=== PATIENT | female | born 1975 | race Caucasian/White ===

== ENCOUNTER 2023-09-22 00:08 | Inpatient (IN) ==
--- OUTSIDE RECORDS SUMMARY | 2023-09-22 00:11 | External Medical Summary | Summary of Care ---
Author Name Unknown Organization [facility] Address [address] [place] [address] Phone [phone] Care Team Providers Care Glass Bulb Silverer Name Role Phone Anny Aguilera DO Primary Care Provider [phone] Reason for Visit * Reason Onset Date Comments Blood Pressure Check 09/19/2023 Encounter Details Date Type Department Care Team (Late st Contact Info) Description 09/19/2023 9:20 AM EST Nurse Only Ancillary [facility] 132 [facility] [place] [address] [facility] 132 [facility] [place] [address] Blood Pressure Check Allergies Active Allergy Reactions Criticality Noted Date Comments Amoxicillin Other (Please comment) Medium 11/23/2010 Yeast infection Food (See Comments) 08/16/2017 Chantell itchy all over Chives gives hives all over body documented as of this encounter (statuses as of 09/19/2023) Medications Medication Sig Dispensed Refills Start Date End Date Status Multiple Vitamins-Minerals (MULTI FOR HER) CAPS Take by mouth. 0 Active Elderberry 575 MG/5ML Oral Syrup Take by mouth . 0 Ac tive Albuterol Sulfate HFA 108 (90 Base) MCG/ACT Inhalation Aerosol SolutionIndication s:Wheezing Inhale 2 Puffs by mouth every 4 hours as needed for Wheezing. 8.5 g 3 09/18/2023 Active Fluticasone Propionate 50 MCG/ACT Nasal Suspension (Flonase)Indicatio ns:ETD (Eustachian tube dysfunction), right Administer 2 Sprays into each nostril in the morning. 16 g 3 09/18/2023 Active predniSONE 20 MG Oral Tablet (Deltasone)Indicat ions:Bronchitis, complicated Take 2 Tablets by mouth in the morning for 5 days. 10 Tablet 0 09/18/2023 09/24/2023 Active Doxycycline Hyclate 100 MG Oral CapsuleIndications :Bronchitis, complicated Take 1 Capsule by mouth in the morning and 1 Capsule before bedtime. Do all this for 7 days. 14 Capsule 0 09/18/2023 09/26/2023 Active documented as of this encounter (statuses as of 09/19/2023) Active Problems Problem Noted Date Diagnosed Date HTN, goal below 130/80 08/24/2019 Dermatophytosis of nail 01/06/2009 Family history of diabetes mellitus 01/06/2009 Family history of ischemic heart disease 009 documented as of this encounter (statuses as of 09/19/2023) Resolved Problems Problem Noted Date Diagnosed Date Resolved Date HTN, goal below 140/90 08/16/201708/24 Acute bronchitis, complicated 07/05/2010 05/07/2013 documented as of this encounter (statuses as of 09/19/2023) Immunizations Name Administration Dates Next Due COVID-19 mRNA, LNP-s, No Pre serve, 2-Dose Series (Moderna) 12/24/2020,11/26/2020 TDAP (age 10 and older)(Boostrix) 06/02/2019 TDAP (age 11 and older)(Adacel) 01/06/2009 documented as of this encounter Social History Tobacco Use Types Packs/Day Years Used Date Smoking Tobacco: Never Smokeless Tobacco: Never Alcohol Use Standard Drinks/Week Comments No 0 (1 standard drink = 0.6 oz pur e alcohol) PHQ-2 Answer Date Recorded PHQ Adult Total Score 0 11/07/2021 Hunger Vital Sign Answer Date Recorded Within the past 12 months, y ou worried that your food would run out before you got the money to buy more. Never true 10/27/19 21 Within the past 12 months, t he food you bought just didn't last and you didn't have money to get more. Never true 10/26/2020 Sex and Gender Information Value Date Recorded Sex Assigned at Female 01/22/2023 4:00 PM EDT Gender Identity Female 01/22/2023 4:00 PM EDT Sexual Orientation Straight 01/22/2023 4: 00 PM EDT Job Start Date Occupation Industry Not on file Not on file Not on file documented as of this encounter Last Filed Vital Signs Vital Sign Reading Time Taken Comments Blood Pressure 154/112 09/19/2023 9:23 AM EST Pulse 110 09/19/2023 9:23 AM EST Temperature - - Respiratory Rate - - Oxygen Saturation - - Inhaled Oxygen Concentration - - Weight - - Height - - Body Mass Index - - documented in this encounter Progress Notes * Leena Reid LPN - 09/19/2023 9:11 AM EST Soni Jose Jama presented for blood pressure check per provider orders. The blood pressure was obtained using the left arm in the sitting position using a adult cuff. The results were charted in Vital Signs. BP Readings from Last 3 Encounters: 09/18/23 (!) 222/112 04/12/23 126/70 01/23/23 120/68 This morning it was 171/103 at home with BP cuff. Pt was previously on BP meds (Lisinopril), was taken off of it in November 2021. Today's NV Vitals: 0916 BP-- 158/118 P- 105 0922 BP- 154/112 P- 110 Today in clinic pt is not symptomatic at all-- only congestion. Pending quad swab. Denies SOB or CP. Patient denies headache, pressure in head, dizziness, lightheadedness, chest discomfort, focal neurological symptoms, change in vision, nose bleeds. But was seen yesterday for sinus congestion Sx. Ptwas advised from PCP to take old lisinopril if she got home and her systolic was over 200 but it was around 180. Did patient take medications today? No, not Rx'd and maintenance meds. Last dose of Sudafed yesterday afternoon. Flonase OTC used last night. 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 Preferred pharmacy-- [facility] Patient was instructed to follow-up with CAMILA or Linsey Osman after today's results are reviewed. documented in this encounter Plan of Treatment Upcoming Encounters Date Type Department Care Team (Late st Contact Info) Description 09/24/2023 9:00 AM EST Nurse Only Ancillary [facility] [place] 132 [facility] [place] [address] Nurse Mannie [facility] 132 [facility] [place] [address] Scheduled Orders Name Type Priority Associated Diagnoses Orde r Schedule BLOOD PRESSURE Procedures Routine HTN, goal below 130/80 Ordered: 09/19/2023 Health Maintenance Due Date Last Done Comments Hepatitis B (1 of 3 - 3-dose series) 1976 HPV/Co-Test 2006 Colonoscopy 2021 Fecal Occult Blood Test 2021 Sigmoidoscopy 2021 Depression Screening 11/07/2022 11/07/2021 GFR 11/07/2022 11/07/2021, 10/11, 08/24/2019, Additional history exists COVID-19 Vaccine ( season) 2023 12/24/2020, 11/26/2020 Influenza Vaccine (FLU shot) (#1) 2023 Cervical Cancer Screening 11/05/2023 Pap Smear 11/05/2023 11/04/2020 Mammogram 07/19/2024 07/19/2023, 06/13, 06/27/2021, Additional history exists Albumin/Creatinine Ratio 11/07/2024 11/07/2021 Diabetes Screening 11/07/2024 11/07/2021, 0 11/04/2020, 08/24/2019, Additional history exists Cologuard 12/14/2024 12/14/2021, 11/11, 12/05/2021 Colorectal Cancer Screening 12/14/2024 Lipid Panel 11/07/2026 11/07/2021, 03/13, 01/06/2009 DTaP,Tdap,and Td Vaccines (3 - Td or Tdap) 06/02/2029 06/02/2019, 01/06/2009 GARDASIL-HPV IMMUNIZATION SERIES Aged Out No longer eligible based on patient's age to complete this topic MENINGOCOCCAL (MENACTRA/MENVEO) Aged Out No longer eligible based on patient's age to complete this topic Pneumococcal Vaccine: Pediatrics (0 to 5 Years) and At-Risk Patients (6 to 64 Years) Aged Out No longer eligible based on patient's age to complete this topic documented as of this encounter Medical Devices Not on filedocumented as of this encounter Visit Diagnoses Diagnosis HTN, goal below 130/80- Primary Unspecified essential hypertension documented in this encounter Care Teams Glass Bulb Silverer Relationship Specialty Start Date End Date Anny Aguilera DO [address] [place] [address] PCP - General Family Medicine 04/06/17 documented as of this encounter
--- OUTSIDE RECORDS SUMMARY | 2023-09-22 00:11 | External Medical Summary | Summary of Care ---
Author Name Unknown Organization [facility] Address [address] [place] [address] Phone [phone] Care Team Providers Care Centrifugal Casting Machine Tender Name Role Phone Anny Aguilera DO Primary Care Provider [phone] Reason for Visit * Reason Comments Physical-Exam Yearly exam, head co ngestion ear pressure, cough, chest tightness, requesting inhaler, covid tests today and yesterday were neg Encounter Details Date Type Department Care Team (Late st Contact Info) Description 09/18/2023 6:40 PM EST Office Visit Family Practice [facility] [address] [place] [address] Anny Aguilera, DO [address] [place] [address] Well adult exam*; Wheezing; ETD (Eustachian tube dysfunction), right; HTN, goal below 130/80; Bronchitis, complicated; Reactive arthritis of multiple sites (HCC) Allergies Active Allergy Reactions Criticality Noted Date Comments Amoxicillin Other (Please comment) Medium 11/23/2010 Yeast infection Food (See Comments) 08/16/2017 Chantell itchy all over Chives gives hives all over body documented as of this encounter (statuses as of 09/21/2023) Medications Medication Sig Dispensed Refills Start Date End Date Status Multiple Vitamins-Minerals (MULTI FOR HER) CAPS Take by mouth. 0 Active Elderberry 575 MG/5ML Oral Syrup Take by mouth . 0 Ac tive Albuterol Sulfate HFA 108 (90 Base) MCG/ACT Inhalation Aerosol SolutionIndicatio ns:Wheezing Inhale 2 Puffs by mouth every 4 hours as needed for Wheezing. 8.5 g 3 09/18/2023 Active Fluticasone Propionate 50 MCG/ACT Nasal Suspension (Flonase)Indicati ons:ETD (Eustachian tube dysfunction), right Administer 2 Sprays into each nostril in the morning. 16 g 3 09/18/2023 Active predniSONE 20 MG Oral Tablet (Deltasone)Indica tions:Bronchitis, complicated Take 2 Tablets by mouth in the morning for 5 days. 10 Tablet 0 09/18/2023 4 Active Doxycycline Hyclate 100 MG Oral CapsuleIndication s:Bronchitis, complicated Take 1 Capsule by mouth in the morning and 1 Capsule before bedtime. Do all this for 7 days. 14 Capsule 0 09/18/2023 4 Active fluticasone (FLONASE) 50 MCG/ACT nasal sprayIndications: ETD (Eustachian tube dysfunction), right Administer 2 Sprays into each nostril daily. 1 Bottle 11 02/11/2019 4 Discontinue d(Refill) Albuterol Sulfate (ALBUTEROL HFA) 108 (90 BASE) MCG/ACT inhaler Inhale 2 Puffs by mouth every 4 hours as needed for Wheezing. 1 Inhaler 1 07/03/2019 4 Discontinue d(Refill) Nabumetone 750 MG Oral Tablet Take 1 Tablet by mouth in the morning and 1 Tablet before bedtime. 42 Tablet 0 04/12/2023 4 Discontinue d(Medicatio n List Clean Up) documented as of this encounter (statuses as of 09/21/2023) Active Problems Problem Noted Date Diagnosed Date Reactive arthritis of multiple sites 09/21/2023 HTN, goal below 130/80 08/24/2019 Dermatophytosis of nail 01/06/2009 Family history of diabetes mellitus 01/06/2009 Family history of ischemic heart disease 009 documented as of this encounter (statuses as of 09/21/2023) Resolved Problems Problem Noted Date Diagnosed Date Resolved Date HTN, goal below 140/90 08/16/201708/24 Acute bronchitis, complicated 07/05/2010 05/07/2013 documented as of this encounter (statuses as of 09/21/2023) Immunizations Name Administration Dates Next Due COVID-19 [...] Sign Reading Time Taken Comments Blood Pressure 222/112 09/18/2023 6:52 PM EST Pulse 112 09/18/2023 6:52 PM EST Temperature 37.4 C (99.4 F) 09/18/2023 6:42 PM ES T Respiratory Rate - - Oxygen Saturation - - Inhaled Oxygen Concentration - - Weight 90.3 kg (199 lb) 09/18/2023 6:42 PM EST Height 161.9 cm (5' 3.75") 09/18/2023 6:42 PM ES T Body Mass Index 34.43 09/18/2023 6:42 PM EST documented in this encounter Progress Notes * Anny Aguilera, DO - 09/18/2023 6:56 PM EST Subjective: Soni Jama is a 48 year old female. Chief Complaint Patient presents with Physical-Exam Yearly exam, head congestion ear pressure, cough, chest tightness, requesting inhaler, covid tests today and yesterday were neg HPI: Pt presents for physical today. Developed a scratchy throat 4 days ago, then sore throat and body aches. + cough, hurts with a deep breath. + sinus pain/pressure. Has been taking sudafed otc. No SOB. Covid test at home negative. was sick last week. BP elevated today, has increased stress, SENG in the hospital. No DILL, no vision changes. PHM: Patient Active Problem List Diagnosis Code Dermatophytosis of nail B35.1 Family history of diabetes mellitus Z83.3 Family history of ischemic heart disease Z82.49 HTN, goal below 130/80 I10 Current Outpatient Medications Medication Sig Dispense Refill Multiple Vitamins-Minerals (MULTI FOR HER) CAPS Take by mouth. fluticasone (FLONASE) 50 MCG/ACT nasal spray Administer 2 Sprays into each nostril daily. 1 Bottle 11 Albuterol Sulfate (ALBUTEROL HFA) 108 (90 BASE) MCG/ACT inhaler Inhale 2 Puffs by mouth every 4 hours as needed for Wheezing. 1 Inhaler 1 Elderberry 575 MG/5ML Oral Syrup Take by mouth . No current facility-administered medications for this visit. Past Medical History: Diagnosis Date Benign neoplasm of skin benign moles Calculus of kidney 1998 complicatied - required surgery for blockage Dermatophytosis of nail toenails HTN, goal below 140/90 08/16/2017 INFORMATION Has received MMR boosters x 2 for low rubella titers in Past Surgical History: Procedure Laterality Date DENTAL SURGERY PROCEDURE NEC KNEE ARTHROSCOPY/SURGERY x3 - L knee - lateral plica revision, cartilidge removed x 2 REMOVAL OF LARGE STONE FROM KIDNEY Review of patient's allergies indicates: Allergen Reactions Amoxicillin Other (Please comment) Yeast infection Food (See Comments) Chantell itchy all over Chives gives hives all over body Objective: BP (!) 222/112 (BP Site: Right Arm, BP Position: Sitting, BP Cuff Size: Large) | Pulse 112 | Temp 37.4 C (99.4 F) (Tympanic) | Ht 1.619 m (5' 3.75") | Wt 90.3 kg (199 lb) | BMI 34.43 kg/m | BSA2.02 m Review of Systems: As per HPI, all other ROS neg. Physical Exam: General: alert, healthy, no distress, well nourished and well developed Head: Normocephalic, No masses, lesions, tenderness or abnormalities Ears: External ears normal, Canals clear, TM's Normal Nose: clear rhinorrhea, mucosal edema, mucosal erythema, sinus tenderness Oropharynx: no exudate, lips, buccal mucosa, and tongue normal, mucous membranes are moist, mild erythema and post nasal drip Neck: supple, small benign anterior cervical nodes bilaterally Heart: regular rate & rhythm, no murmurs and no gallops Lungs: + sig dec air mov't b/l, slight exp wheeze Abdomen: abdomen soft, non-tender, normal bowel sounds, and no masses or organomegaly Extremities: less than 2 second capillary refill, no joint deformities, effusion, or inflammation Well adult exam (Primary) all appropriate HM items addressed Including genitourinary (pap, mammo, psa), colon cancer screening and immunizations as indicated by patient sex, age and history Wheezing - Albuterol Sulfate HFA 108 (90 Base) MCG/ACT Inhalation Aerosol Solution; Inhale 2 Puffs by mouth every 4 hours as needed for Wheezing. ETD (Eustachian tube dysfunction), right - Fluticasone Propionate 50 MCG/ACT Nasal Suspension (Flonase); Administer 2 Sprays into each nostril in the morning. HTN, goal below 130/80 - BASIC METABOLIC PANEL; Future; Expected date: 09/18/2023 - LIPID PANEL WITH DIRECT LDL IF TG IS HIGH; Future; Expected date: 09/18/2023 Stop sudafed/other decongestants/cough medications Monitor BP at home, repeat NV tomorrow If remains elevated will restart lisinopril Bronchitis, complicated - predniSONE 20 MG Oral Tablet (Deltasone); Take 2 Tablets by mouth in the morning for 5 days. - Doxycycline Hyclate 100 MG Oral Capsule; Take 1 Capsule by mouth in the morning and 1 Capsule before bedtime. Do all this for 7 days. - INFLUENZA A/B RSV SARS-COV2,PCR; Future; Expected date: 09/18/2023 - INFLUENZA A/B RSV SARS-COV2,PCR Reactive arthritis of multiple sites (HCC) Hx of, sx resolved Follow up: as needed. Anny Aguilera DO documented in this encounter Plan of Treatment Upcoming Encounters Date Type Department Care Team (Late st Contact Info) Description 09/24/2023 9:00 AM EST Nurse Only Ancillary [facility] 132 [facility] [place] [address] Nurse Mannie De La Rosa 132 [facility] [place] [address] Scheduled Orders Name Type Priority Associated Diagnoses Orde r Schedule BASIC METABOLIC PANEL Lab Routine HTN, goal below 130/80 Expected: 09/18/2023 (Approximate), Expires: 09/17/2024 LIPID PANEL WITH DIRECT LDL IF TG IS HIGH Lab Routine HTN, goal below 130/80 Expected: 09/18/2023, Expires: 09/18/2024 Health Maintenance Due Date Last Done Comments [...] Not on filedocumented as of this encounter Procedures Procedure Name Priority Date/Time Associated Diagnosis Comments INFLUENZA A/B RSV SARS-COV2,PCR Routine 09/18/2023 7:28 PM EST Bronchitis, complicated documented in this encounter Results * INFLUENZA A/B RSV SARS-COV2,PCR (09/18/2023 7:28 PM EST) SARS-CoV-2 (COVID-19) Result Negative Negative 09/19/2023 11:07 AM EST [facility] Comment: No SARS-CoV2 Coronavirus RNA detected by PCR (amplified probe). This express test was developed and its performance characteristics determined by [employer]. It has not been cleared or approved by the U.S. Food and Drug Administration (FDA). FDA does not require this test to go thru premarket FDA review. This test is used for clinical purposes. It should not be regarded as investigational or for research. This laboratory is certified under the Clinical Laboratory Improvement Amendments (CLIA) as qualified to perform high complexity clinical laboratory testing. This test is a nucleic acid amplification test (NAAT), a reverse transcriptase polymerase chain reaction (RT-PCR) test, or a Centers for Disease Control- acceptable equivalent. The test is performed in a high complexity Clinical Laboratory Improvement Amendments-(CLIA) certified laboratory. The test is acceptable for SARS-CoV-2 diagnosis, surveillance, and travel within the [place] and to most countries. Please check with local testing authorities about requirements before travel. The validation of bronchial specimens, tracheal aspirates, and sputum for this assay was developed and performance characteristics determined by [employer]. The validation of alternate specimen types has not been cleared or approved by the U.S. Food and Drug Administration (FDA). It has been determined that such clearance is not necessary. Influenza A PCR Result Negative Negative 09/19/2023 11:07 AM EST [facility] Comment:No Influenza A RNA d etected by PCR (amplified probe) Influenza B PCR Result Negative Negative 09/19/2023 11:07 AM EST [facility] Comment:No Influenza B RNA d etected by PCR (amplified probe) RSV PCR Result Negative Negative 09/19/2023 11:07 AM EST [facility] Comment:No Respiratory Syncy tial Virus RNA detected by PCR (amplified probe) Upper Respiratory Mid-turbinate nasal swab / Unknown Non-blood Collection / Unknown 09/18/2023 7:28 PM EST 09/18/2023 7:28 PM EST Anny Aguilera DO LAB MICRO - GENERAL ORDERABLES [facility] [place] [address] documented in this encounter Visit Diagnoses Diagnosis Well adult exam- Primary Routine general medical examination at a health care facility Wheezing ETD (Eustachian tube dysfunction), right HTN, goal below 130/80 Unspecified essential hypertension Bronchitis, complicated Bronchitis, not specified as acute or chronic 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
--- OUTSIDE RECORDS SUMMARY | 2023-09-22 00:11 | External Medical Summary | Summary of Care ---
Author Name Unknown Organization [facility] [address] [facility] [address] Phone [phone] Care Team Providers Care Mining Detail Draftsperson Name Role Phone Anny Aguilera DO Primary Care Provider Encounter Details Date Type Department Care Team (Late st Contact Info) Description 09/20/2023 Orders Only PATIENT [facility] DO NOT DELETE THIS DEPT USED BY [place] [address] Allergies Active Allergy Reactions Criticality Noted Date Comments Amoxicillin Other (Please comment) Medium 11/23/2010 Yeast infection Food (See Comments) 08/16/2017 Chantell itchy all over Chives gives hives all over body documented as of this encounter (statuses as of 09/20/2023) Medications Medication Sig Dispensed Refills Start Date [...] as of this encounter (statuses as of 09/20/2023) Active Problems Problem Noted Date Diagnosed Date HTN, goal below 130/80 08/24/2019 Dermatophytosis of nail 01/06/2009 Family history of diabetes mellitus 01/06/2009 Family history of ischemic heart disease 009 documented as of this encounter (statuses as of 09/20/2023) Resolved Problems Problem Noted Date Diagnosed Date Resolved Date HTN, goal below 140/90 08/16/201708/24 Acute bronchitis, complicated 07/05/2010 05/07/2013 documented as of this encounter (statuses as of 09/20/2023) Immunizations Name Administration Dates Next Due COVID-19 [...] on file documented as of this encounter Plan of Treatment Upcoming Encounters Date Type Department Care Team (Late st Contact Info) Description 09/24/2023 9:00 AM EST [facility] [address] [place] [address] De La Rosa, Nurse [facility] 132 [facility] [place] [address] Health Maintenance Due Date Last Done Comments [...] 08/24/2019, Additional history exists Cologuard 12/14/2024 12/14/2021, 042 01/2022, 12/05/2021 Colorectal Cancer Screening 12/14/2024 Lipid Panel [...] Not on filedocumented as of this encounter Care Teams Mining Detail Draftsperson Relationship Specialty Start Date End Date Anny Aguilera DO [address] [place] [address] PCP - General Family Medicine 04/06/17 documented as of this encounter
--- OUTSIDE RECORDS SUMMARY | 2023-09-22 00:11 | External Medical Summary ---
Author Name Unknown Address Unknown Organization [facility] - [address] [place] [address] Laboratory Report Ordering Provider Test Date Status YANET PLUNKETT 09/18/2023 19:28:32 Final Observation Date Value Abnormality Reference (Units ) Status SARS Coronavirus 2 09/18/2023 19:28:32 Negative N egative Final No SARS-CoV2 Coronavirus RNA detected by PCR (amplified probe).
This express test was developed and its performance characteristics determined by [employer]. It has not been cleared or approved [...] (RT-PCR) test, or a Centers for Disease Control-acceptable equivalent. The test is performed in a high complexity Clinical Laboratory Improvement Amendments-(CLIA) certified laboratory. The test is acceptable for SARS-CoV-2 diagnosis, surveillance, and travel within the [place] and to most countries. Please check with local testing authorities about requirements before travel.

The validation of bronchial specimens, tracheal aspirates, and sputum for this assay was developed and performance characteristics determined by [employer] [facility]. The validation of alternate specimen types has not been cleared or approved by the U.S. Food and Drug Administration (FDA). It has been determined that such clearance is not necessary. Influenza virus A RNA [Prese nce] in Specimen by BENNETT with probe detection 09/18/2023 19:28:32 Negative Negative Final No Influenza A RNA detected by PCR (amplified probe) Influenza virus B RNA [Prese nce] in Specimen by BENNETT with probe detection 09/18/2023 19:28:32 Negative Negative Final No Influenza B RNA detected by PCR (amplified probe) Respiratory syncytial virus RNA [Identifier] in Specimen by BENNETT with probe detection 09/18/2023 19:28:32 Negative Negative Final No Respiratory Syncytial Vir us RNA detected by PCR (amplified probe) Performing Location [facility] - [address] [place] [address]
--- OUTSIDE RECORDS SUMMARY | 2023-09-22 00:11 | External Medical Summary | Summary of Care ---
Author Name Unknown Organization [facility] Address [address] [place] [address] Phone [phone] Care Team Providers Care Managed Care Director Name Role Phone Anny Aguilera DO Primary Care Provider Encounter Details Date Type Department Care Team (Late st Contact Info) Description 07/22/2023 Orders Only Family Practice [facility] [address] [place] [id number] Anny Aguilera DO [address] [place] [id number] Allergies Active Allergy Reactions Criticality Noted Date Comments Amoxicillin Other (Please comment) Medium 11/23/2010 Yeast infection Food (See Comments) 08/16/2017 Chantell itchy all over Chives gives hives all over body documented as of this encounter (statuses as of 07/22/2023) Medications Medication Sig Dispensed Refills Start Date End Date Status Multiple Vitamins-Minerals (MULTI FOR HER) CAPS Take by mouth. 0 Active fluticasone (FLONASE) 50 MCG/ACT nasal sprayIndications:ET D (Eustachian tube dysfunction), right Administer 2 Sprays into each nostril daily. 1 Bottle 11 02/11/2019 Active Albuterol Sulfate (ALBUTEROL HFA) 108 (90 BASE) MCG/ACT inhaler Inhale 2 Puffs by mouth every 4 hours as needed for Wheezing. 1 Inhaler 1 07/03/2019 Active Elderberry 575 MG/5ML Oral Syrup Take by mouth . 0 Ac tive Nabumetone 750 MG Oral Tablet Take 1 Tablet by mouth in the morning and 1 Tablet before bedtime. 42 Tablet 0 04/12/2023 Active documented as of this encounter (statuses as of 07/22/2023) Active Problems Problem Noted Date Diagnosed Date HTN, goal below 130/80 08/24/2019 Dermatophytosis of nail 01/06/2009 Family history of diabetes mellitus 01/06/2009 Family history of ischemic heart disease 009 documented as of this encounter (statuses as of 07/22/2023) Resolved Problems Problem Noted Date Diagnosed Date Resolved Date HTN, goal below 140/90 08/16/201708/24 Acute bronchitis, complicated 07/05/2010 05/07/2013 documented as of this encounter (statuses as of 07/22/2023) Immunizations Name Administration Dates Next Due COVID-19 [...] Care Team (Late st Contact Info) Description 09/11/2023 5:20 PM EST Office Visit [facility] [address] [place] [phone] Anny Aguilera DO [address] [place] [address] Health Maintenance Due Date Last Done Comments Hepatitis B (1 of 3 - 3-dose series) 1976 HPV/Co-Test 2006 Colonoscopy 2021 Fecal Occult Blood Test 2021 Sigmoidoscopy 2021 Depression Screening 11/07/2022 11/07/2021 GFR 11/07/2022 11/07/2021, 10/11, 08/24/2019, Additional history exists COVID-19 Vaccine ( season) 2023 12/24/2020, 11/26/2020 Influenza Vaccine (FLU shot) (#1) 2023 Cervical Cancer Screening 11/05/2023 Pap Smear 11/05/2023 11/04/2020 Mammogram 07/22/2024 07/19/2023, 06/13, 06/27/2021, Additional history exists Albumin/Creatinine Ratio 11/07/2024 11/07/2021 Diabetes Screening 11/07/2024 11/07/2021, 0 11/04/2020, 08/24/2019, Additional history exists Cologuard 12/14/2024 12/14/2021, 12/05/2021 Colorectal Cancer Screening 12/14/2024 Lipid Panel [...] Procedure Name Priority Date/Time Associated Diagnosis Comments MAMMOGRAM SCREENING BILATERAL Routine 07/19/2023 documented in this encounter Results * MAMMOGRAM SCREENING BILATERAL (07/19/2023) Anatomical Region Laterality Modality Breast Bilateral Other 07/19/2023 Jason Thomson MD RAD MAMMOGRAPHY documented in this encounter Care Teams Managed Care Director Relationship Specialty Start Date End Date Anny Aguilera DO [address] [place] [id number] PCP - General Family Medicine 04/06/17 documented as of this encounter
--- OUTSIDE RECORDS SUMMARY | 2023-09-22 00:11 | External Medical Summary | Summary of Care ---
Author Name Unknown Organization [facility] Address [address] [place] [address] Phone [phone] Care Team Providers Care Game Programer Name Role Phone Anny Aguilera DO Primary Care Provider Encounter Details Date Type Department Care Team (Late st Contact Info) Description 09/19/2023 Telephone Family Practice [facility] [address] [place] [address] Anny Aguilera DO [address] [place] [address] Allergies Active Allergy Reactions Criticality Noted Date [...] on file documented as of this encounter Miscellaneous Notes * Telephone Encounter - Davidson Talamanets MD - 09/19/2023 10:18 AM EST Asymptomatic. Took sudafed yesterday. Instructed stay off sudafed, ck BP daily at home & bring results in next week. If remains high will need to restart Rx & f/u PCP * Telephone Encounter - Leena Reid LPN - 09/19/2023 9:42 AM EST Soni Jose Jama presented for [...] OTC used last night. Has yet to picking crew supervisor meds that were Rx'd at appt yesterday. Preferred pharmacy[facility] Spoke with Unruly Talamantes and he suggested getting pt scheduled for another BP NV next week to see if itgoes any lower. Patient was instructed to follow-up with PCP after results for today are reviewed. documented in this encounter Plan of Treatment Upcoming Encounters Date Type Department Care Team (Late st Contact Info) Description 09/24/2023 9:00 AM EST Nurse Only [facility]illary [facility] [place] [address] [place] [id number] Nurse Mannie De La Rosa [address] [facility] [place] [address] Health Maintenance Due Date Last Done Comments [...] filedocumented as of this encounter Care Teams Game Programer Relationship Specialty Start Date End Date Anny Aguilera DO [address] [place] [phone] PCP - General Family Medicine 04/06/17 documented as of this encounter
[2023-09-22] MEDS: SODIUM CHLORIDE 0.9% 2,000 ML IV ONE (00:43)
--- NOTE | 2023-09-22 00:53 | Emergency Department Note ---
Impression & Plan Hypertension, Tachycardia ED Provider Note HISTORY OF PRESENT ILLNESS: Patient is a 48-year-old female presenting with hypertension and tachycardia. Patient reports that she had upper respiratory symptoms starting 6 days ago. She went to her primary care provider 5 days ago and was diagnosed with an upper respiratory infection. She was started on doxycycline and prednisone. Her blood pressure at her clinic visit was elevated and her doctor instructed her to keep an eye on it and recommend she stop taking the Sudafed that she was taking. Patient states that she started taking the prednisone 3 days ago, but felt like her heart was racing and she was very jittery so she stopped taking it. She states she did stop taking the doxycycline because it gave her a "pins and needle sensation." She had a nursing visit follow-up at her primary care provider's office 3 days ago and was still found to be hypertensive. She has been under a lot of stress recently, as her [id number] was sick in the hospital. She got home from visiting her family in the hospital tonight and was not feeling well so she took her blood pressure and it was noted to be over 200 systolic. Patient has been taking her old prescription of 5 mg lisinopril over the last 3 days. She denies any chest pain, shortness of breath or lightheadedness. She felt like her heart was racing earlier tonight and that is what prompted her to get her blood pressure. She currently reports he feels like her heart is beating quickly, but not as bad as earlier. Denies any excessive caffeine use. Denies any DVT or PE history. Denies any anticoagulation use. She is not on any OCPs or estrogen supplementation. ROS: as above PHYSICAL EXAM: Constitutional: Patient appears in no acute distress. HENT: Head: Normocephalic and atraumatic. Eyes: EOMI, PERRL Mouth/Throat: Mucous membranes moist. Neck: Trachea midline. Neck supple. Cardiovascular: Tachycardic with normal rhythm. No murmurs, rubs or gallops. Intact distal pulses. Pulmonary/Chest: No respiratory distress. Breath sounds clear and equal bilaterally. No wheezes or rales. Abdominal: Abdomen soft, no tenderness, rebound or guarding. Musculoskeletal: No edema, tenderness or deformity noted. Skin: Warm and dry. No rash, erythema, pallor or cyanosis Psychiatric: Appropriate mood and affect for situation. Neurological: Alert and keenly responsive. CN II-XII grossly intact, moving all extremities equally and fully. MDM: - Vitals signs showed hypertension and tachycardia. - History obtained via patient. Patient presents with hypertension and tachycardia. Patient reports she had an upper respiratory infection 6 days ago. She was started on doxycycline and prednisone but is since stopped these medications due to their side effects. She states that she felt like her heart was racing earlier tonight and that she took her blood pressure and vitals and her systolic blood pressure was over 200. She had an old prescription for lisinopril 5 mg that she has been taking over the last 3 days. Denies any chest pain, shortness of breath or lightheadedness. Reports he feels like her heart was racing earlier tonight but it feels slightly improved on arrival to the ER. Denies any excessive caffeine use. Denies any DVT or PE history. She not on any OCPs or estrogen supplementation. - Chronic conditions affecting care: HTN - Differential diagnoses include, but are not limited to: MARY; electrolyte abnormality; primary hypertension; anxiety; medication side effect - Order placed for continuous cardiac monitoring. At this time, monitor showed rate of 106 bpm with normal sinus rhythm, per my interpretation. - External medical records reviewed. Primary care visit note dated 09/18/2023 was reviewed. She presented for a wellness visit. On her blood pressure recommendations were to stop Sudafed and other decongestions and monitor her blood pressure at home. If it remained elevated they recommended starting her lisinopril. Her blood pressure in the clinic was 222/112. - EKG interpreted by myself showed normal sinus rhythm. Rate 93 bpm. QT 360. No acute ischemic changes. - Laboratory workup interpreted by myself showed normal WBC; stable electrolytes; normal troponin; normal BMP; normal lipase; normal TSH - CXR negative for pneumonia, per my interpretation - Patient given 2L NS, 10 mg IV hydralazine and 0.5 mg IV ativan on arrival to ER. On reassessment of vital signs, patient's blood pressure did improve down to the 160s systolic, but her heart rate is still persistently 120-130. Given an additional 1 mg IV Ativan. - CT PE negative for PE. - On reassessment, patient is sleeping comfortably in the room, but her heart rate is 146 and SBP 190s. - Discussion was had with healthcare administration internship about patient's case and need for admission - Hospitalist consulted for admission - [facility] for further evaluation and management. ASSESSMENT AND PLAN: Diagnosis: Hypertension; tachycardia Plan: admit Past Med/Surg History Social History Smoking Status: Never smoker Preferred Language: Wallisian Feels Safe at Home: Yes Allergies Allergies Allergy/AdvReac Type Severity Reaction Status Date / Time dee Allergy Itching Verified 09/22/23 00:18 amoxicillin AdvReac Intermediate causes Verified 09/22/23 00:17 yeast infections chives Allergy Hives Uncoded 09/22/23 00:18 Home Meds Home Medications Medication Instructions Recorded Confirmed albuterol sulfate 90 mcg/actuation 2 puff inhalation Q4 PRN Wheezing 09/22/23 09/22/23 aerosol inhaler doxycycline hyclate 100 mg capsule 100 mg PO AMHS 09/22/23 09/22/23 fluticasone propionate 50 2 spray intranasal QAM 09/22/23 09/22/23 mcg/actuation nasal spray,suspension lisinopril 5 mg tablet 5 mg PO QAM 09/22/23 09/22/23 multivitamin with minerals 1 tab PO DAILY 09/22/23 09/22/23 (Multiple Vitamin-Minerals tablet) prednisone 20 mg tablet 20 mg PO QAM 09/22/23 09/22/23 Results & Data (ED) Vital Signs Vital Signs - 24 hr 09/22/23 00:11 09/22/23 00:26 09/22/23 00:37 Temperature 36.5 C Temperature Source Temporal Artery Scan Pulse Rate 120 H 106 H Respiratory Rate 20 Respiratory Effort / Characteristics Non-Labored Respiratory Depth Normal Blood Pressure 185/142 H Blood Pressure Mean 156 Pulse Oximetry 98 99 Oxygen Delivery Method Room Air Room Air Sepsis Recent Fever Within 48 Hours No Sepsis New/Unexplained Change in Mental Status No Sepsis Action Taken by Nursing No Action Required 09/22/23 01:00 09/22/23 01:34 09/22/23 02:00 Temperature Temperature Source Pulse Rate 100 H 132 H 129 H Respiratory Rate 16 18 12 Respiratory Effort / Characteristics Respiratory Depth Blood Pressure 192/109 H 163/96 H 194/106 H Blood Pressure Mean 136 118 135 Pulse Oximetry 97 97 99 Oxygen Delivery Method Sepsis Recent Fever Within 48 Hours Sepsis New/Unexplained Change in Mental Status Sepsis Action Taken by Nursing Laboratory Data 09/22/23 00:34 09/22/23 00:34 Lab Results 09/22/23 09/22/23 09/22/23 Range/Units 00:30 00:34 00:34 WBC 9.23 (4.8-10.8) K/ul RBC 5.07 (4.20-5.40) M/uL Hgb 14.7 (12.0-16.0) g/dl Hct 43.1 (37.0-47.0) % MCV 85.0 (80.0-100.0) fL MCH 29.0 (25.0-34.0) pg MCHC 34.1 (32.0-36.0) g/dL RDW Std Deviation 41.0 (36.4-46.3) fL RDW Coeff of Michael 13.2 (11.5-14.5) % Plt Count 305 (130-400) K/uL MPV 9.4 (9.4-12.4) fL Immature Gran % (Auto) 0.3 % Neut % (Auto) 60.9 % Lymph % (Auto) 31.6 % [place] % (Auto) 6.1 % Eos % (Auto) 0.7 % Baso % (Auto) 0.4 % Neut # (Auto) 5.62 (1.40-6.50) K/uL Lymph # (Auto) 2.92 (1.20-3.40) K/uL [place] # (Auto) 0.56 (0.11-0.59) K/uL Eos # (Auto) 0.06 (0.00-0.50) K/uL Baso # (Auto) 0.04 (0.00-0.20) K/uL Immature Gran # (Auto) 0.03 (0.01-0.20) K/uL PT Cancelled INR Cancelled Sodium 138 (136-145) mmol/L Potassium 3.7 (3.5-5.1) mmol/L Chloride 100 (98-107) mmol/L Carbon Dioxide 26 (21-32) mmol/L Anion Gap 12 H (3-11) BUN 15 (6-23) mg/dl Creatinine 0.84 (0.6-1.2) mg/dl Est Cr Clr Drug Dosing 88.9 ml/min Est GFR ( Amer) 95.9 ml/min Est GFR (Non-Af Amer) 82.8 ml/min BUN/Creatinine Ratio 17.9 (10-20) Glucose 139 H (70-99(Fasting)) mg/dl Calcium 9.9 (8.6-10.3) mg/dl Magnesium 2.0 (1.7-2.4) mg/dl Total Bilirubin 0.7 (0.2-1.0) mg/dl AST 15 (13-39) U/L ALT 15 (7-52) U/L Alkaline Phosphatase 66 (34-104) U/L Troponin I High Sens 3.3 (0-14) pg/ml B-Natriuretic Peptide 15 (0-100) pg/ml Total Protein 8.1 (6.0-8.3) gm/dl Albumin 4.9 (3.4-5.0) gm/dl Globulin 3.2 (2.5-4.0) gm/dl Albumin/Globulin Ratio 1.5 (0.9-2) Lipase 19 (11-82) U/L TSH 1.359 Cancelled (0.300-4.500) uIu/ml SARS-CoV-2 (PCR) NEGATIVE (Negative) Influenza Type A (PCR) Negative (Neg) Influenza Type B (PCR) Negative (Neg) RSV (RT-PCR) Negative (Neg) Administered Medications Sodium Chloride (Nss) 2,000 mls @ 999 mls/hr IV .Q2H1M ONE Stop: 09/22/23 02:27 Last Admin: 09/22/23 00:43 Dose: 999 mls/hr Documented By: BURKE Discontinued Medications Hydralazine HCl (Hydralazine Hcl 20 Mg/Ml Vial) 10 mg IV NOW STA Stop: 09/22/23 00:45 Last Admin: 09/22/23 00:58 Dose: 10 mg Documented By: BURKE Ioversol (Optiray 320 125ml) 118 ml IV ONCE ONE Stop: 09/22/23 01:34 Last Admin: 09/22/23 01:30 Dose: 118 ml Documented By: WIL Lorazepam (Lorazepam 1 Mg/1 Ml Syr Ed Inj Use) 0.5 mg IV ONE STA Stop: 09/22/23 00:45 Last Admin: 09/22/23 01:05 Dose: 0.5 mg Documented By: BURKE Lorazepam (Lorazepam 1 Mg/1 Ml Syr Ed Inj Use) 1 mg IV ONE STA Stop: 09/22/23 01:45 Last Admin: 09/22/23 01:53 Dose: 1 mg Documented By: BURKE Imaging Data Radiologist's Impression: Chest CTA 09/22/23 01:14 Exam(s): CTA CHEST IV Amt: 118 ml EXAM: CT Angiography Chest With Intravenous Contrast CLINICAL HISTORY: Reason for exam: PE. TECHNIQUE: Axial computed tomographic angiography images of the chest with intravenous contrast. CTDI is 39.29 mGy and DLP is 841.44 mGy-cm. Automated exposure control was utilized for the study. A dose lowering technique was utilized adhering to the principles of ALARA. MIP reconstructed images were created and reviewed. 118 mL IV contrast is given. COMPARISON: None. FINDINGS: Pulmonary arteries: No pulmonary embolism. Aorta: No dissection or aneurysm. 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 No consolidation. Pleural space: No significant effusion. No pneumothorax. Heart: Mild cardiomegaly. No significant pericardial effusion. No evidence of elevated right heart pressures. Bones/joints: No acute fracture. Soft tissues: Unremarkable. Lymph nodes: No enlarged lymph nodes. IMPRESSION: 1. No pulmonary embolism. 2. Normal variant anatomy with right-sided aortic arch and aberrant left subclavian artery, can result in dysphagia, correlate clinically. 3. Lungs are clear. Electronically signed by: Mireya Hurd M.D. 09/22/23 01:57 AM Discharge Plan Visit Data Chief Complaint: Hypertension Stated Complaint: HIGH BLOOD PRESSURE ED Provider: Wanda Vasquez Discharge Problem: Hypertension, Tachycardia Forms Stand Alone Forms: My [facility] Prescriptions Prescriptions: No Action lisinopril 5 mg tablet 5 mg PO QAM prednisone 20 mg tablet 20 mg PO QAM Rx Instructions: take for 5 days starting 09/18/23 fluticasone propionate 50 mcg/actuation spray,suspension 2 spray INTRANASAL QAM doxycycline hyclate 100 mg capsule 100 mg PO [facility]HS Rx Instructions: take for 7 days start 09/19/23 albuterol sulfate 90 mcg/actuation HFA aerosol inhaler 2 puff INHALATION Q4 PRN (Reason: Wheezing) Multiple Vitamin-Minerals Tablet 1 tab PO DAILY Referrals Referrals: Anny Aguilera DO [Primary Care Provider] -
[2023-09-22] MEDS: hydrALAZINE HCL 20 MG/ML VIAL IV STA (00:58)
[2023-09-22 01:04] LABS: Basophils # (auto) 0.04 K/uL (0.00-0.20); Basophils % (auto) 0.4 %; Eosinophils # (auto) 0.06 K/uL (0.00-0.50); Eosinophils % (auto) 0.7 %; Hematocrit (blood only) 43.1 % (37.0-47.0); Hemoglobin 14.7 g/dl (12.0-16.0); Immature Granulocytes # (auto) 0.03 K/uL (0.01-0.20); Immature Granulocytes % (auto) 0.3 %; Lymphocytes # (auto) 2.92 K/uL (1.20-3.40); Lymphocytes % (auto) 31.6 %; Mean Corpuscular Hgb Conc 34.1 g/dL (32.0-36.0); Mean Platelet Volume 9.4 fL (9.4-12.4); Monocytes # (auto) 0.56 K/uL (0.11-0.59); Monocytes % (auto) 6.1 %; Neutrophils # (auto) 5.62 K/uL (1.40-6.50); Neutrophils % (auto) 60.9 %; Platelet Count 305 K/uL (130-400); RDW Coefficient of Variation 13.2 % (11.5-14.5); Red Blood Count 5.07 M/uL (4.20-5.40); White Blood Count 9.23 K/ul (4.8-10.8)
[2023-09-22] MEDS: LORazepam 1 MG/1 ML SYR ED Inj Use IV STA ×2 (01:05→01:53)
[2023-09-22 01:21] LABS: Albumin Globulin Ratio 1.5 (0.9-2); Albumin Level 4.9 gm/dl (3.4-5.0); BUN Creatinine Ratio 17.9 (10-20); Bilirubin,Total 0.7 mg/dl (0.2-1.0); Calcium 9.9 mg/dl (8.6-10.3); Creatinine Clr Calc Pharmacy 88.9 ml/min; Est GFR (African American) 95.9 ml/min; Est GFR (Non-African American) 82.8 ml/min; Globulin 3.2 gm/dl (2.5-4.0); Potassium 3.7 mmol/L (3.5-5.1); Total Protein 8.1 gm/dl (6.0-8.3)
[2023-09-22 01:26] LABS: Troponin I High Sensitivity 3.3 pg/ml (0-14)
[2023-09-22] MEDS: OPTIRAY 320 125ml IV ONE (01:30)
[2023-09-22 01:49] LABS: Influenza A virus by PCR Negative (Neg); Influenza B virus by PCR Negative (Neg); RSV by PCR Negative (Neg); SARS CoV2 RNA(COVID-19) Ceph NEGATIVE (Negative)
--- NOTE | 2023-09-22 01:58 | CT Scan Report ---
Exam(s): CTA CHEST IV Amt: 118 ml EXAM: CT Angiography Chest With Intravenous Contrast CLINICAL HISTORY: Reason for exam: PE. TECHNIQUE: Axial computed tomographic angiography images of the chest with intravenous contrast. CTDI is 39.29 mGy and DLP is 841.44 mGy-cm. Automated exposure control was utilized for the study. A dose lowering technique was utilized adhering to the principles of ALARA. MIP reconstructed images were created and reviewed. 118 mL IV contrast is given. COMPARISON: None. FINDINGS: Pulmonary arteries: No pulmonary embolism. Aorta: No dissection or aneurysm. 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 No consolidation. Pleural space: No significant effusion. No pneumothorax. Heart: Mild cardiomegaly. No significant pericardial effusion. No evidence of elevated right heart pressures. Bones/joints: No acute fracture. Soft tissues: Unremarkable. Lymph nodes: No enlarged lymph nodes. IMPRESSION: 1. No pulmonary embolism. 2. Normal variant anatomy with right-sided aortic arch and aberrant left subclavian artery, can result in dysphagia, correlate clinically. 3. Lungs are clear. Electronically signed by: Mireya Hurd M.D. 09/22/23 01:57 AM
[2023-09-22 02:03] LABS: Thyroid Stimulating Hormone 1.359 uIu/ml (0.300-4.500)
[2023-09-22] MEDS: LABETALOL HCL IV 5 MG/ML 20ML IV STA (02:40)
[2023-09-22] MEDS: POTASSIUM CHLORIDE CRTAB 20 MEQ TABCR PO STA (02:43)
[2023-09-22 02:51] LABS: Prothrombin Time 10.9 Seconds (9.0-12.0)
--- NOTE | 2023-09-22 02:59 | History & Physical Report ---
Date of Service September 22, 2023 Assessment & Plan (1) Hypertensive crisis: Plan: Multifactorial Recent decongestant intake followed by adverse reaction to prednisone/doxycycline for recent viral URTI Anxiety contributory Steroid-induced hyperglycemia rule out DM OBS PCU IV labetalol 1 dose now Titrate home lisinopril Cardiology consult if without improvement Anxiolytic as needed Check hemoglobin A1c DVT prophylaxis. Lovenox subcu Full code Text document was generated using [employer] voice recognition software. It may contain grammatical or spelling errors. Kindly contact undersigned for clarification of any documentation item in question. History of Present Illness Chief Complaint: High blood pressure Primary Care Provider: Anny Aguilera DO History obtained from patient, family, and records. Medical history significant for hypertension, urolithiasis, reactive arthritis as per records. Patient developed sinus congestion symptoms associated with sore throat and bodyaches. Cough symptoms productive of clear sputum. No chest pain, no SOB. Patient taking OTC Sudafed. Outpatient COVID-19 test was negative. Admits to some personal stressors. Patient seen at PCPs office 4 days ago. SBP noted to be 220s, heart rate 110s. Slight expiratory wheeze on exam. Patient prescribed prednisone and doxycycline for possible complicated bronchitis. Patient instructed to stop Sudafed and restart home lisinopril if persistently elevated. Patient has been off blood pressure medicine for a few years now due to low BP. Patient felt sick after first doses of prednisone and doxycycline. Prednisone made her more anxious and doxycycline made her feel uncomfortable and tingly. SBP noted to be 200s despite taking hold lisinopril prescription. Denies headache, chest pain, SOB. Admits to palpitations. Highest SBP of 190s documented at the ER. Hydralazine administered at the ER. Medical History as above Surgical History : Urologic procedure, dental surgery, left knee surgery Family History : DM, heart disease Personal/Social history : Non-smoker, no EtOH intake, [employer] employee Allergies Allergy/AdvReac Type Severity Reaction Status Date / Time onion Allergy Unknown Chives Verified 09/22/23 02:18 give her hives dee Allergy Itching Verified 09/22/23 00:18 amoxicillin AdvReac Intermediate causes Verified 09/22/23 00:17 yeast infections doxycycline AdvReac Intermediate tingling Verified 09/22/23 06:49 prednisone AdvReac Intermediate palpitation Verified 09/22/23 06:48 s Home Medications Medication Instructions Recorded Confirmed Type albuterol sulfate 90 mcg/actuation 2 puff inhalation Q4 PRN Wheezing 09/22/23 09/22/23 History aerosol inhaler fluticasone propionate 50 2 spray intranasal QAM 09/22/23 09/22/23 History mcg/actuation nasal spray,suspension lisinopril 5 mg tablet 5 mg PO QAM 09/22/23 09/22/23 History multivitamin with minerals 1 tab PO DAILY 09/22/23 09/22/23 History (Multiple Vitamin-Minerals tablet) Past Med/Surg History Social History Smoking Status: Never smoker Do You Dip or Chew Tobacco: No; Hx Alcohol Use: No Hx Substance Use: No Preferred Language: Tuvaluan Communication Ability: Effective Senior Technical Support Engineer Required: No Beliefs That Will Affect Care: None Current Living Situation: Spouse Other Information That Helps Us Care for You: No Feels Safe at Home: Yes Safety Concerns: Feels Safe At This Time Assistive Devices: None Review of Systems Review of Systems: As per HPI, all other systems reviewed and negative Physical Exam Physical Exam: GENERAL: Comfortable, slightly anxious, obese, no respiratory distress SKIN: Normal color, warm HEENT: [place]pect[place]led, [place] palpebral conjunctivae, no ptosis, dry buccal mucosa NECK : Supple, short neck, no tenderness CHEST : CTA, no tenderness HEART : Tachycardic, no obvious murmurs ABDOMEN: Some distention, nontender EXTREMITIES : Minimal LE swelling, no LE tenderness, no other conspicuous deformities noted NEUROLOGIC : Coherent, no facial asymmetry, no other gross focality Results & Data Results & Data Vital Signs (Past 12 Hours) Vital Signs Temp Pulse Resp BP Pulse Ox O2 Del Method 09/22/23 02:42 136 H 20 166/105 H 100 09/22/23 02:40 132 H 166/105 H 09/22/23 02:00 129 H 12 194/106 H 99 09/22/23 01:34 132 H 18 163/96 H 97 09/22/23 01:00 100 H 16 192/109 H 97 09/22/23 00:37 99 Room Air 09/22/23 00:26 106 H 09/22/23 00:11 36.5 C 120 H 20 185/142 H 98 Room Air Laboratory Results Laboratory Results WBC 9.23 K/ul (4.8-10.8) 09/22/23 00:34 RBC 5.07 M/uL (4.20-5.40) 09/22/23 00:34 Hgb 14.7 g/dl (12.0-16.0) 09/22/23 00:34 Hct 43.1 % (37.0-47.0) 09/22/23 00:34 MCV 85.0 fL (80.0-100.0) 09/22/23:34 MCH 29.0 pg (25.0-34.0) 09/22/23:34 MCHC 34.1 g/dL (32.0-36.0) 09/22/23 00:34 RDW Std Deviation 41.0 fL (36.4-46.3) 09/22/23:34 RDW Coeff of Michael 13.2 % (11.5-14.5) 09/22/23 00:34 Plt Count 305 K/uL (130-400) 09/22/23:34 MPV 9.4 fL (9.4-12.4) 09/22/23 00:34 Immature Gran % (Auto) 0.3 % 09/22/23 00:34 Neut % (Auto) 60.9 % 09/22/23 00:34 Lymph % (Auto) 31.6 % 09/22/23 00:34 Jerauld % (Auto) 6.1 % 09/22/23 00:34 Eos % (Auto) 0.7 % 09/22/23 00:34 Baso % (Auto) 0.4 % 09/22/23 00:34 Neut # (Auto) 5.62 K/uL (1.40-6.50) 09/22/23 00:34 Lymph # (Auto) 2.92 K/uL (1.20-3.40) 09/22/23 00:34 Jerauld # (Auto) 0.56 K/uL (0.11-0.59) 09/22/23 00:34 Eos # (Auto) 0.06 K/uL (0.00-0.50) 09/22/23 00:34 Baso # (Auto) 0.04 K/uL (0.00-0.20) 09/22/23 00:34 Immature Gran # (Auto) 0.03 K/uL (0.01-0.20) 09/22/23 00:34 PT 10.9 Seconds (9.0-12.0) 09/22/23 01:53 INR 1.0 (0.9-1.1) 09/22/23 01:53 Sodium 138 mmol/L (136-145) 09/22/23 00:34 Potassium 3.7 mmol/L (3.5-5.1) 09/22/23 00:34 Chloride 100 mmol/L (98-107) 09/22/23 00:34 Carbon Dioxide 26 mmol/L (21-32) 09/22/23 00:34 Anion Gap 12 (3-11) H 09/22/23 00:34 BUN 15 mg/dl (6-23) 09/22/23 00:34 Creatinine 0.84 mg/dl (0.6-1.2) 09/22/23 00:34 Est Cr Clr Drug Dosing 88.9 ml/min 09/22/23 00:34 Est GFR ( Amer) 95.9 ml/min 09/22/23 00:34 Est GFR (Non-Af Amer) 82.8 ml/min 09/22/23 00:34 BUN/Creatinine Ratio 17.9 (10-20) 09/22/23 00:34 Glucose 139 mg/dl (70-99(Fasting)) H 09/22/23 00:34 Calcium 9.9 mg/dl (8.6-10.3) 09/22/23 00:34 Magnesium 2.0 mg/dl (1.7-2.4) 09/22/23 00:34 Total Bilirubin 0.7 mg/dl (0.2-1.0) 09/22/23 00:34 AST 15 U/L (13-39) 09/22/23 00:34 ALT 15 U/L (7-52) 09/22/23 00:34 Alkaline Phosphatase 66 U/L (34-104) 09/22/23 00:34 Troponin I High Sens 3.3 pg/ml (0-14) 09/22/23 00:34 B-Natriuretic Peptide 15 pg/ml (0-100) 09/22/23 00:34 Total Protein 8.1 gm/dl (6.0-8.3) 09/22/23 00:34 Albumin 4.9 gm/dl (3.4-5.0) 09/22/23 00:34 Globulin 3.2 gm/dl (2.5-4.0) 09/22/23 00:34 Albumin/Globulin Ratio 1.5 (0.9-2) 09/22/23 00:34 Lipase 19 U/L (11-82) 09/22/23 00:34 TSH 1.359 uIu/ml (0.300-4.500) 09/22/23 00:34 TSH Cancelled 09/22/23 00:34 Random Cortisol 23.60 mcg/dl 09/22/23 00:34 SARS-CoV-2 (PCR) NEGATIVE (Negative) 09/22/23 00:30 Influenza Type A (PCR) Negative (Neg) 09/22/23 00:30 Influenza Type B (PCR) Negative (Neg) 09/22/23 00:30 RSV (RT-PCR) Negative (Neg) 09/22/23 00:30 Impressions Chest CTA 09/22/23 01:14 Exam(s): CTA CHEST IV Amt: 118 ml EXAM: CT Angiography Chest With Intravenous Contrast CLINICAL HISTORY: Reason for exam: PE. TECHNIQUE: Axial computed tomographic angiography images of the chest with intravenous contrast. CTDI is 39.29 mGy and DLP is 841.44 mGy-cm. Automated exposure control was utilized for the study. A dose lowering technique was utilized adhering to the principles of ALARA. MIP reconstructed images were created and reviewed. 118 mL IV contrast is given. COMPARISON: None. FINDINGS: Pulmonary arteries: No pulmonary embolism. Aorta: No dissection or aneurysm. 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 No consolidation. Pleural space: No significant effusion. No pneumothorax. Heart: Mild cardiomegaly. No significant pericardial effusion. No evidence of elevated right heart pressures. Bones/joints: No acute fracture. Soft tissues: Unremarkable. Lymph nodes: No enlarged lymph nodes. IMPRESSION: 1. No pulmonary embolism. 2. Normal variant anatomy with right-sided aortic arch and aberrant left subclavian artery, can result in dysphagia, correlate clinically. 3. Lungs are clear. Electronically signed by: Mireya Hurd M.D. 09/22/23 01:57 AM Diagnostic Findings EKG as per my interpretation :Rate 95, NSR, LAD, LAFB, no ischemia
[2023-09-22] MEDS ORDERED: PROMETHAZINE HCL 12.5 MG in SODIUM CHLORIDE 0.9% 50 ML IV PRN (03:02)
[2023-09-22] MEDS ORDERED: oxyCODONE HCL IR 5 MG TAB (IMMEDIATE RELEASE) PO PRN (03:03)
[2023-09-22 03:18] LABS: Appearance Urine Clear (Clear); Bilirubin Urine Negative (Negative); Blood Urine Negative (Negative); Color Urine Yellow; Glucose Urine UA Negative (Negative); Ketones Urine Negative (Negative); Leukocyte Esterase Urine 1+ (Negative); Nitrite Urine Negative (Negative); Protein Urine Negative (Negative); Specific Gravity Urine 1.006 (1.000-1.030); Urobilinogen Urine Negative (Negative)
[2023-09-22 03:21] LABS: Pregnancy Test, Urine Negative (Negative)
[2023-09-22 03:24] LABS: Amphetamines+Metham, Urine Neg (Neg); Barbiturates, Urine Neg (Neg); Benzodiazepine, Urine Neg (Neg); Cocaine, Urine Neg (Neg); MDMA (Ecstacy), Urine Neg (Neg); Marijuana, Urine Neg (Neg); Methadone, Urine Neg (Neg); Opiate, Urine Neg (Neg); Phencyclidine, Urine Neg (Neg)
[2023-09-22 04:03] LABS: Bacteria Urine Automated Negative (Negative); Cast Urine Automated 0 /lpf (0-5); Epithelial Cell Urine Auto 20-30 /lpf (0-5); RBC Urine Automated 0-4 /hpf (0-4)
[2023-09-22] MEDS: NSS + 20MEQ KCL 20 MEQ/1,000 ML BAG IV STA (04:08)
[2023-09-22] MEDS ORDERED: ACETAMINOPHEN 325 MG TAB PO PRN (05:57)
[2023-09-22] MEDS ORDERED: NITROGLYCERIN SL 0.4 MG/TAB TAB SL PRN (05:57)
[2023-09-22] MEDS: cloNIDine HCL 0.1 MG TAB PO ONE (06:28)
--- NOTE | 2023-09-22 07:15 | Electrocardiogram Report ---
Test Reason : Blood Pressure : / mmHG Vent. Rate : 093 BPM Atrial Rate : 093 BPM P-R Int : 114 ms QRS Dur : 084 ms QT Int : 360 ms P-R-T Axes : 049 006 076 degrees QTc Int : 447 ms Sinus rhythm with marked sinus arrhythmia Otherwise normal ECG No previous ECGs available Confirmed by Johann Cuellar ([id number]) on 09/22/2023 7:15:45 AM Referred By: Anny Aguilera Confirmed By:Mansoor Cuellar
[2023-09-22 07:22] LABS: Estimated Average Glucose 131 mg/dl; Hemoglobin A1C 6.2 % (4.5-5.6)
[2023-09-22] MEDS: ENOXAPARIN INJ 40 MG/0.4 ML SYR SQ SCH (08:32)
[2023-09-22] MEDS: lisinopril 10 MG TAB PO SCH (08:32)
[2023-09-22] MEDS: CEROVITE ADV FORMULA TAB PO SCH (08:32)
[2023-09-22] MEDS: LORazepam 0.5 MG TAB PO PRN (08:32)
[2023-09-22] MEDS: METOPROLOL TARTRATE 1 MG/ML VIAL IV STA (08:34)
--- NOTE | 2023-09-22 09:03 | XRay Report ---
XR chest 1V portable CLINICAL HISTORY: Chest pain, nonspecific COMPARISON STUDY: No previous studies for comparison. FINDINGS: Lung volumes are normal. Lungs are clear. There is no pneumothorax or pleural effusion. Car diac size is normal. Right aortic arch is incidentally noted. There is no evidence for pulmonary sergio a. IMPRESSION: No acute cardiopulmonary findings. ACT 112: Negative or not required by law. Electronically signed by: Candido Kong M.D. 09/22/2023 9:02 AM
--- NOTE | 2023-09-22 10:06 | Ultrasound Report ---
US duplex renal artery CLINICAL HISTORY: hypertensive urgency COMPARISON STUDY: No previous studies for comparison. TECHNIQUE: Grayscale, color and duplex Doppler sonography of the abdominal aorta and renal arteries w as performed. FINDINGS: Taking systolic velocity within the abdominal aorta was 64 cm/s. The bilateral renal arteri es and veins were patent. The peak systolic velocity within the right renal artery was 134 cm/s. Segm ental waveforms within the right kidney are unremarkable. Peak systolic velocity within the left rosemarie l artery was 104 cm/s. Echogenic foci within the left kidney measure up to 7 mm. These favor stones. Bilateral renal cortical thinning. There is moderate right hydronephrosis. There is also possible mil d to moderate left hydronephrosis. There is bilateral renal cortical thinning. Possible medullary nep hrocalcinosis. IMPRESSION: 1. No sonographic evidence for renal artery stenosis. 2. Moderate right hydronephrosis of uncertain etiology. Possible left hydronephrosis. Abdomen and pel vis CT could be obtained for further evaluation. 3. Suspected left-sided nephrolithiasis. Possible medullary nephrocalcinosis. 4. Bilateral renal cortical thinning. ACT 112: Negative or not required by law. Electronically signed by: Candido Kong M.D. 09/22/2023 10:04 AM
[2023-09-22] MEDS: lisinopril 10 MG TAB PO ONE (12:38)
--- NOTE | 2023-09-22 17:05 | Hospitalist Progress Note ---
Date of Service September 22, 2023 Assessment & Plan (1) Hypertensive crisis: (2) Hypertension: (3) Tachycardia: Plan Pt is a 48yoF with PMHx significant for hypertension, urolithiasis, reactive arthritis presenting with elevated blood pressure readings and admitted with hypertensive urgency. Hypertensive Urgency Palpitations Tachycardia Multifactorial, noting palpitations at home and extremity numbness and tingling. 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 Notes it can cause dysphagia, to correlate clinically. Renal Duplex US ordered, noted the following findings: -No sonographic evidence for renal artery stenosis -Moderate right hydronephrosis of uncertain etiology. Possible left hydronephrosis. Abdomen and pelvis CT could be obtained for further evaluation -Suspected left-sided nephrolithiasis. Possible medullary nephroca lcinosis. -Bilateral renal cortical thinning Treated with IV labetalol and IV hydralazine in the ED and on admission Also received a dose of IV Lopressor for tachycardia Pt reports she was taking previously discontinued home lisinopril 5mg for the past few days Lisinopril dose titrated to 10mg and received an additional 10mg dose. BP currently down to 144/103 from 194/106 carole-admission Continue with lisinopril 20mg qAM, po hydralazine 25mg qPM Continue to monitor, pt currently asymptomatic Consider Nephrology consult for hypertensive urgency/medullary nephrocalcinosis noted (see below) Possible Medullary nephrocalcinosis Noted on renal US above Consider Nephrology followup Nephrolithiasis Hydronephrosis Pt notes Hx of kidney stones Renal US noting moderate right hydronephrosis of uncertain etiology. Possible left hydronephrosis. CT abd/pelvis ordered for further work-up, follow Consider Urology followup Anxiety Multifactorial Pt notes recent stressors of father in law currently hospitalized at [facility] as well. Past work stressors Continue with prn Ativan Consider salvage determiner treatment with an SSRI Prediabetes Pt with noted hyperglycemia Hgba1c of 6.2 Lifestyle changes, can consider low dose metformin based on risk factors PCP follow up Diet: HH DVT prophylaxis: Lovenox subcu Full code Dispo: Home once stable Admission and Anticipated Discharge Date Admission Date: September 22, 2023 Subjective Pt was seen multiple times. In the AM, stated that her chiaxr-sf-cyw was on another floor, very sick and might be passing soon. Notes that might have been a recent stressor for her. Also notes that work might have been another stressor for her. States that she has a Hx of HTN but was taken off of lisinopril a year or two ago as her BP had been going too low. Later back at bedside to update about renal US results. Notes that she had a kidney stone about 24 years ago. Review of Systems Review of Systems: All systems reviewed & are unremarkable except as noted in Subjective Physical Exam Physical Exam: General: Alert, oriented. No acute distress Skin: No noted rashes or bruises Psych: Appropriate mood and affect Neuro: No gross deficits HEENT: NC/AT Chest: Nontender to palpation. CV: RRR at the time of exam, Normal s1, s2. No murmurs appreciated Resp: Breath sounds clear bilaterally, no increased effort of breathing. Abdomen: Soft, nontender, nondistended. No guarding. No organomegaly appreciated. Extremities: No edema in lower extremities bilaterally. Results & Data Results & Data Vital Signs (Past 12 Hours) Vital Signs Temp Pulse Pulse Resp BP BP Pulse Ox 09/22/23 11:27 36.5 C 94 H 17 168/109 H 95 09/22/23 10:09 84 166/109 H 09/22/23 10:09 84 09/22/23 08:49 95 H 09/22/23 08:34 105 H 168/104 H 09/22/23 07:44 36.7 C 18 168/104 H 99 09/22/23 06:03 119 H 09/22/23 05:25 36.6 C 18 171/116 H 96 09/22/23 05:21 09/22/23 04:00 118 H 18 141/98 H 98 09/22/23 03:30 115 H 16 141/88 H 95 09/22/23 03:00 117 H 172/109 H 09/22/23 03:00 117 H 16 172/109 H 96 09/22/23 02:42 136 H 20 166/105 H 100 09/22/23 02:40 132 H 166/105 H 09/22/23 02:37 09/22/23 02:00 129 H 12 194/106 H 99 09/22/23 01:34 132 H 18 163/96 H 97 09/22/23 01:00 100 H 16 192/109 H 97 09/22/23 00:37 99 09/22/23 00:26 106 H 09/22/23 00:11 36.5 C 120 H 20 185/142 H 98 O2 Del Method 09/22/23 11:27 Room Air 09/22/23 10:09 09/22/23 10:09 09/22/23 08:49 09/22/23 08:34 09/22/23 07:44 Room Air 09/22/23 06:03 09/22/23 05:25 Room Air 09/22/23 05:21 Room Air 09/22/23 04:00 09/22/23 03:30 09/22/23 03:00 09/22/23 03:00 09/22/23 02:42 09/22/23 02:40 09/22/23 02:37 Room Air 09/22/23 02:00 09/22/23 01:34 09/22/23 01:00 09/22/23 00:37 Room Air 09/22/23 00:26 09/22/23 00:11 Room Air Diagnostic Findings Chest X-Ray 09/22/23 00:27 XR chest 1V portable CLINICAL HISTORY: Chest pain, nonspecific COMPARISON STUDY: No previous studies for comparison. FINDINGS: Lung volumes are normal. Lungs are clear. There is no pneumothorax or pleural effusion. Cardiac size is normal. Right aortic arch is incidentally no sirai. There is no evidence for pulmonary edema. IMPRESSION: No acute cardiopulmonary findings. ACT 112: Negative or not required by law. Electronically signed by: Candido Kong M.D. 09/22/2023 9:02 AM Chest CTA 09/22/23 01:14 Exam(s): CTA CHEST IV Amt: 118 ml EXAM: CT Angiography Chest With Intravenous Contrast CLINICAL HISTORY: Reason for exam: PE. TECHNIQUE: Axial computed tomographic angiography images of the chest with intravenous contrast. CTDI is 39.29 mGy and DLP is 841.44 mGy-cm. Automated exposure control was utilized for the study. A dose lowering technique was utilized adhering to the principles of ALARA. MIP reconstructed images were created and reviewed. 118 mL IV contrast is given. COMPARISON: None. FINDINGS: Pulmonary arteries: No pulmonary embolism. Aorta: No dissection or aneurysm. 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 No consolidation. Pleural space: No significant effusion. No pneumothorax. Heart: Mild cardiomegaly. No significant pericardial effusion. No evidence of elevated right heart pressures. Bones/joints: No acute fracture. Soft tissues: Unremarkable. Lymph nodes: No enlarged lymph nodes. IMPRESSION: 1. No pulmonary embolism. 2. Normal variant anatomy with right-sided aortic arch and aberrant left subclavian artery, can result in dysphagia, correlate clinically. 3. Lungs are clear. Electronically signed by: Mireya Hurd M.D. 09/22/23 01:57 AM Renal Artery Duplex 09/22/23 08:20 US duplex renal artery CLINICAL HISTORY: hypertensive urgency COMPARISON STUDY: No previous studies for comparison. TECHNIQUE: Grayscale, color and duplex Doppler sonography of the abdominal aorta and renal arteries was performed. FINDINGS: Taking systolic velocity within the abdominal aorta was 64 cm/s. The bilateral renal arteries and veins were patent. The peak systolic velocity within the right renal artery was 134 cm/s. Segmental waveforms within the right kidney are unremarkable. Peak systolic velocity within the left renal artery was 104 cm/s. Echogenic foci within the left kidney measure up to 7 mm. These favor stones. Bilateral renal cortical thinning. There is moderate right hydronephros is. There is also possible mild to moderate left hydronephrosis. There is bilateral renal cortical thinning. Possible medullary nephrocalcinosis. IMPRESSION: 1. No sonographic evidence for renal artery stenosis. 2. Moderate right hydronephrosis of uncertain etiology. Possible left hydronephrosis. Abdomen and pelvis CT could be obtained for further evaluation. 3. Suspected left-sided nephrolithiasis. Possible medullary nephrocalcinosis. 4. Bilateral renal cortical thinning. ACT 112: Negative or not required by law. Electronically signed by: Candido Kong M.D. 09/22/2023 10:04 AM
[2023-09-22] MEDS: OPTIRAY 320 500ml IV ONE (18:08)
[2023-09-22] MEDS: LORazepam 0.25 MG in SYRINGE 0.125 ML IV STA (18:12)
--- NOTE | 2023-09-22 18:49 | CT Scan Report ---
CT OF THE ABDOMEN AND PELVIS WITH CONTRAST CLINICAL HISTORY: f/u renal US, hydronephrosis COMPARISON STUDY: Doppler renal ultrasound performed earlier today. TECHNIQUE: Following IV administration of 87 mL of Optiray, axial images of the abdomen and pelvis we re obtained from the lung bases to the proximal femurs. Images were reviewed in the axial, sagittal, and coronal planes. IV contrast was administered without complication. Automated exposure control wa s utilized for the study. A dose lowering technique was utilized adhering to the principles of ALARA . CT DOSE: 1310.58 mGy.cm FINDINGS: Lung bases are unremarkable. No pneumatosis, free air or portal venous gas is present. Ther e are no hepatic lesions. Spleen, adrenal glands and pancreas are unremarkable. There is no biliary o r pancreatic ductal dilatation. Severe right hydronephrosis is due to a 5 mm mid right ureteral calcu aren. There are no left ureteral calculi. Numerous left renal calculi measure up to 8 mm. Numerous lef t renal calculi are present including a 1.1 cm inferior left infundibular calculus which results in m oderate dilatation of the left lower pole calyces. Numerous small right renal calculi are present. Th e right nephrogram is not delayed. The caliber and wall thickness of small and large bowel are normal . The appendix is normal. A water attenuation 9.2 cm left adnexal lesion is present. There is a low-a ttenuation 3.3 center right adnexal lesion. There is no lymphadenopathy. No ascites. IMPRESSION: 1. Severe right hydronephrosis due to a 5 mm mid right ureteral calculus. 2. 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 1.1 cm inferior left i nfundibular calculus which results in moderate dilatation of the left lower pole calyces. No left ure teral calculi. 3. 9.2 cm water attenuation left adnexal lesion and a 3.3 cm hypodense right adnexal lesion. These ar e indeterminate but statistically reflect cysts. A follow-up pelvic ultrasound in 2 months is recomme nded to ensure resolution/stability. ACT 112: Negative or not required by law. Electronically signed by: Candido Kong M.D. 09/22/2023 6:47 PM
[2023-09-22] MEDS: hydrALAZINE HCL 25 MG TAB PO SCH (20:32)
[2023-09-23 07:52] LABS: Basophils # (auto) 0.05 K/uL (0.00-0.20); Basophils % (auto) 0.6 %; Eosinophils # (auto) 0.12 K/uL (0.00-0.50); Eosinophils % (auto) 1.5 %; Hematocrit (blood only) 41.4 % (37.0-47.0); Hemoglobin 13.5 g/dl (12.0-16.0); Immature Granulocytes # (auto) 0.02 K/uL (0.01-0.20); Immature Granulocytes % (auto) 0.2 %; Lymphocytes # (auto) 2.29 K/uL (1.20-3.40); Lymphocytes % (auto) 28.2 %; Mean Corpuscular Hemoglobin 28.1 pg (25.0-34.0); Mean Corpuscular Hgb Conc 32.6 g/dL (32.0-36.0); Mean Corpuscular Volume 86.1 fL (80.0-100.0); Mean Platelet Volume 9.6 fL (9.4-12.4); Monocytes # (auto) 0.57 K/uL (0.11-0.59); Neutrophils # (auto) 5.06 K/uL (1.40-6.50); Neutrophils % (auto) 62.5 %; Platelet Count 306 K/uL (130-400); RDW Coefficient of Variation 13.4 % (11.5-14.5); RDW Standard Deviation 42.1 fL (36.4-46.3); Red Blood Count 4.81 M/uL (4.20-5.40); White Blood Count 8.11 K/ul (4.8-10.8)
[2023-09-23 08:45] LABS: Anion Gap 7 (3-11); Blood Urea Nitrogen 10 mg/dl (6-23); Calcium 9.6 mg/dl (8.6-10.3); Carbon Dioxide 29 mmol/L (21-32); Chloride 102 mmol/L (98-107); Est GFR (African American) 97.3 ml/min; Glucose 109 mg/dl (70-99(Fasting)); Magnesium 2.1 mg/dl (1.7-2.4); Phosphorus 3.7 mg/dl (2.5-4.9); Sodium 138 mmol/L (136-145)
[2023-09-23] MEDS: lisinopril 20 MG TAB PO SCH (08:54)
--- NOTE | 2023-09-23 08:56 | Urology Consultation ---
Date of Consultation September 23, 2023 Assessment & Plan (1) Right ureteral stone: (2) Hydronephrosis, right: (3) Nephrolithiasis: Plan 48 yo/M admitted for hypertension and tachycardia; found to have right ureteral stone with hydronephrosis Afebrile and hemodynamically stable Labscreatinine 0.83, no leukocytosis Urinalysis on arrival was not suggestive of infection CT A/P reviewed and discussed with patientdiscussed right ureteral stone with hydronephrosis; additional nephrolithiasis She remains asymptomatic from stone standpoint She had breakfast this morning Given she is asymptomatic with stable labs, we discussed outpatient follow-up for stone management She is agreeable to this plan Recommend provide strainer so she can strain urine Will send message for follow-up with our office will sign off, contact our service with any additional questions or concerns History of Present Illness Reason for Consultation: severe R hydronephrosis, 5 mm stone Attending Physician: Aurora Moreno MD History of Present Illness This is a 48-year-old female who presented to the emergency department on 09/22/2023 for evaluation of hypertension and tachycardia. During workup for hypertensive urgency, she underwent ultrasound duplex renal artery which showed no sonographic evidence for renal artery stenosis. Ultrasound showed moderate right hydronephrosis of uncertain etiology, possible left hydronephrosis, suspected left-sided nephrolithiasis, possible medullary nephrocalcinosis. She underwent CT A/P for further evaluation, which noted severe right hydronephrosis due to a 5 mm mid right ureteral calculus; bilateral nephrolithiasis possibly reflecting medullary nephrocalcinosis. 1.1 cm inferior left and phone tubular calculus which resulted moderate dilatation of the left lower pole calyces, no left ureteral calculi. Urology is consulted for severe right hydronephrosis, 5 mm right ureteral calculus. Today's labscreatinine 0.83, WBC 8.11, hemoglobin 13.5 Urinalysis on arrival showed 1+ leukocyte esterase, 5-10 WBC, 20-30 epithelial cells; negative for bacteria Patient seen and examined at bedside this morning. She is awake, alert and resting in bed. Denies flank pain. Denies nausea/vomiting. Denies fever/chills. Voiding spontaneously. No dysuria or hematuria. She reports history of kidney stone in 1999, which required ureteroscopy and laser lithotripsy. She reports multiple family members with history of kidney stones. Patient had breakfast this morning. Allergies Allergy/AdvReac Type Severity Reaction Status Date / Time onion Allergy Unknown Chives Verified 09/22/23 02:18 give her hives dee Allergy Itching Verified 09/22/23 00:18 amoxicillin AdvReac Intermediate causes Verified 09/22/23 00:17 yeast infections doxycycline AdvReac Intermediate tingling Verified 09/22/23 06:49 prednisone AdvReac Intermediate palpitation Verified 09/22/23 06:48 s Home Medications Medication Instructions Recorded Confirmed Type albuterol sulfate 90 mcg/actuation 2 puff inhalation Q4 PRN Wheezing 09/22/23 09/22/23 History aerosol inhaler fluticasone propionate 50 2 spray intranasal QAM 09/22/23 09/22/23 History mcg/actuation nasal spray,suspension lisinopril 5 mg tablet 5 mg PO QAM 09/22/23 09/22/23 History multivitamin with minerals 1 tab PO DAILY 09/22/23 09/22/23 History (Multiple Vitamin-Minerals tablet) Patient History Social History Smoking Status: Never smoker Do You Dip or Chew Tobacco: No; Hx Alcohol Use: No Hx Substance Use: No Preferred Language: Macedonian Communication Ability: Effective 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 Beliefs That Will Affect Care: None Current Living Situation: Spouse Other Information That Helps Us Care for You: No Feels Safe at Home: Yes Safety Concerns: Feels Safe At This Time Assistive Devices: None Review of Systems Review of Systems: All systems reviewed & are unremarkable except as noted in HPI & below Physical Exam Constitutional: well developed and well nourished; no acute distress Respiratory: normal respiratory effort; no respiratory distress and no labored breathing Gastrointestinal (Abdomen): Inspection/Auscultation: abdomen normal to inspection Musculoskeletal: Head/Neck/Chest: normocephalic Neurologic: moves all extremities and awake Psychiatric: Orientation: alert and oriented x 3 Results & Data Vital Signs (Past 12 Hours) Vital Signs Temp Pulse Pulse Resp BP BP Pulse Ox 09/23/23 03:53 36.5 C 85 18 139/82 99 09/23/23 00:28 87 09/22/23 22:40 36.6 C 91 H 18 165/92 H 97 O2 Del Method 02/12/24 03:53 Room Air 09/23/23 00:28 09/22/23 22:40 Room Air PG Care Time/CCT Total # of Minutes Spent Total Time Spent with Patient: Total time spent is greater than 50% in coordination of care (as documented) at patient's floor/unit and/or counseling patient: Coding Level of Care Code 43212 OFFICE CONSULT LVL M Diagnoses Right ureteral stone N20.1 Hydronephrosis, right N13.30 Nephrolithiasis N20.0
--- NOTE | 2023-09-23 10:52 | Nephrology Consultation ---
Date of Consultation September 23, 2023 Assessment & Plan (1) Hypertensive crisis: from no BP meds to now very high BP. Does have a lot of stressors also lately. . But looks like she does need BP meds. has h/o Cough often so will rather use ARB --valsartan 160 instead of Lisinopril. All are generic nowadays with no difference in cost. D/c Hydralazine--Makes tachycardia/Palpitation worse. Would also consider adding HCTZ but will like to do 24 hr urine for Calcium--if she has Hypercalciuria she will benefit even more. Add HCTZ 12.5 mg for now. (2) Hydronephrosis, right: (3) Right ureteral stone: (4) Nephrolithiasis: had h/o this 20 years ago also and now. Surprising that she has absolutely no symptoms . I did review Urology note. the plan is for conservative management at this time. Hopefully she will pass the kidney stone in the right on her own. she has nephrocalcinosis and given history of kidney stone she does need workup for hypercalcemia. most importantly she needs a 24 hour urine study for uro risk. but would like to do this after she passes current kidney stone. also check PTH and vitamin-D level. Plan time spent 60 minutes History of Present Illness Reason for Consultation: HTN urgency, Nephrocalcinosis Attending Physician: Aurora Moreno MD History of Present Illness 48/F Admitted because of High BP and Bronchitis Symptoms.her BP was high as outpt also when she saw her PCP. Was prescribed prednisone and doxycycline for possible complicated bronchitis. Patient instructed to stop Sudafed and restart lisinopril. She was on 10 mg lisinopril before but was stopped because of Low BP Patient felt sick after first doses of prednisone and doxycycline. Prednisone made her more anxious/Jittery and doxycycline made her feel uncomfortable and tingly. SBP noted to be 200s despite taking lisinopril Denies headache, chest pain, SOB. Admits to palpitations. Highest SBP of 190s documented at the ER. Since admission she has got iv hydralazine + oral Hydralazine, Iv labetalol and now Po lisinopril. She does have h/o Dry cough related with Asthma/RAD. Renal Duplex led to CT abdomen --shows rt hydro and rt ureteric Stone and nephrocalcinosis. Seen by urology already. no intervention as no lab change and no Symptoms at all. Review of system---- positive for some mild cough and sinus pressure. Otherwise 12 systems reviewed and negative. Surprisingly despite renal imaging findings she has absolutely no flank pain or any urinary complaint physical examination awake alert oriented x3 normal speech young female who is able to give detailed account of her medical history. mucous membrane is moist neck is supple no JVD chest bilateral clear to auscultation CVS S1 and S2 regular no rub murmur or gallop heard abdomen is soft nontender. no costovertebral angle tenderness noted extremities shows no edema skin shows no rash Allergies Allergy/AdvReac Type Severity Reaction Status Date / Time onion Allergy Unknown Chives Verified 09/22/23 02:18 give her hives dee Allergy Itching Verified 09/22/23 00:18 amoxicillin AdvReac Intermediate causes Verified 09/22/23 00:17 yeast infections doxycycline AdvReac Intermediate tingling Verified 09/22/23 06:49 prednisone AdvReac Intermediate palpitation Verified 09/22/23 06:48 s Home Medications Medication Instructions Recorded Confirmed Type albuterol sulfate 90 mcg/actuation 2 puff inhalation Q4 PRN Wheezing 09/22/23 09/22/23 History aerosol inhaler fluticasone propionate 50 2 spray intranasal QAM 09/22/23 09/22/23 History mcg/actuation nasal spray,suspension lisinopril 5 mg tablet 5 mg PO QAM 09/22/23 09/22/23 History multivitamin with minerals 1 tab PO DAILY 09/22/23 09/22/23 History (Multiple Vitamin-Minerals tablet) Patient History Social History Smoking Status: Never smoker Do You Dip or Chew Tobacco: No; Hx Alcohol Use: No Hx Substance Use: No Preferred Language: Kyrgyz Communication Ability: Effective Diet Attendant Required: No Beliefs That Will Affect Care: None Current Living Situation: Spouse Feels Safe at Home: Yes Assistive Devices: None Results & Data Vital Signs (Past 12 Hours) Vital Signs Temp Pulse Pulse Resp BP Pulse Ox O2 Del Method 09/23/23 08:00 36.4 C L 91 H 21 150/81 H 97 Room Air 09/23/23 03:53 36.5 C 85 18 139/82 99 Room Air 09/23/23 00:28 87 Laboratory Results reviewed in detail Diagnostic Findings x-ray renal duplex and CT abdomen reviewed in detail
[2023-09-23] MEDS: VALSARTAN 80 MG TAB PO SCH (13:46)
[2023-09-23] MEDS: hydroCHLOROthiazide 25 MG TAB PO SCH (14:21)
--- NOTE | 2023-09-23 16:42 | Hospitalist Progress Note ---
Date of Service September 23, 2023 Assessment & Plan (1) Hypertensive crisis: (2) Hypertension: (3) Tachycardia: Plan Pt is a 48yoF with PMHx significant for hypertension, urolithiasis, reactive arthritis presenting with elevated blood pressure readings and admitted with hypertensive urgency. Hypertensive Urgency Palpitations Tachycardia Multifactorial, noting palpitations at home and extremity numbness and tingling. 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 Notes it can cause dysphagia, to correlate clinically. Renal Duplex US ordered, noted the following findings: -No sonographic evidence for renal artery stenosis -Moderate right hydronephrosis of uncertain etiology. Possible left hydronephrosis. Abdomen and pelvis CT could be obtained for further evaluation -Suspected left-sided nephrolithiasis. Possible medullary nephroca lcinosis. -Bilateral renal cortical thinning Treated with IV labetalol and IV hydralazine in the ED and on admission Also received a dose of IV Lopressor for tachycardia Pt reports she was taking previously discontinued home lisinopril 5mg for the past few days Lisinopril dose titrated to 10mg and received an additional 10mg dose after admission BP was 194/106 carole-admission Was placed on lisinopril 20mg qAM, po hydralazine 25mg qPM originally Seen by Nephrology on 09/23 for hypertensive urgency/medullary nephrocalcinosis noted, appreciate recs -transitioned to valsartan 160mg qAM with hctz 12.5mg qAM (lisinopril and hydralazine discontinued) -recommending 24hr urine testing Continue to monitor BP and HR, pt currently asymptomatic Possible Medullary nephrocalcinosis Noted on renal US above CT abd/pelvis noting the same Nephrology consulted-appreciate recs Nephrolithiasis Hydronephrosis Pt notes Hx of kidney stones Renal US noting moderate right hydronephrosis of uncertain etiology. Possible left hydronephrosis. CT abd/pelvis confirming the same, 5mm stone noted. Pt asymptomatic Urology consulted, appreciate recs -recommending outpt followup -urine strainer Anxiety Multifactorial Pt notes recent stressors of father in law currently hospitalized at [facility] as well. 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 Agreeable to further monitoring given the change in medications. Review of Systems Review of Systems: All systems reviewed & are unremarkable except as noted in Subjective Physical Exam Physical Exam: General: Alert, oriented. No acute distress Skin: No noted rashes or bruises Psych: Appropriate mood and affect Neuro: No gross deficits HEENT: NC/AT Chest: Nontender to palpation. CV: RRR at the time of exam, Normal s1, s2. No murmurs appreciated Resp: Breath sounds clear bilaterally, no increased effort of breathing. Abdomen: Soft, nontender, nondistended. No guarding. No organomegaly appreciated. Extremities: No edema in lower extremities bilaterally. Results & Data Results & Data Vital Signs (Past 12 Hours) Vital Signs Temp Pulse Resp BP BP Pulse Ox O2 Del Method 09/23/23 15:54 36.6 C 105 H 18 141/88 H 99 Room Air 09/23/23 14:56 36.6 C 93 H 19 145/108 H 99 Room Air 09/23/23 11:35 36.6 C 94 H 19 158/107 H 96 Room Air 09/23/23 10:56 36.7 C 94 H 18 162/102 H 96 Room Air 09/23/23 08:00 36.4 C L 91 H 21 150/81 H 97 Room Air
[2023-09-24 06:57] LABS: Basophils # (auto) 0.06 K/uL (0.00-0.20); Basophils % (auto) 0.6 %; Eosinophils # (auto) 0.15 K/uL (0.00-0.50); Eosinophils % (auto) 1.4 %; Hematocrit (blood only) 44.6 % (37.0-47.0); Hemoglobin 14.8 g/dl (12.0-16.0); Immature Granulocytes # (auto) 0.05 K/uL (0.01-0.20); Immature Granulocytes % (auto) 0.5 %; Lymphocytes # (auto) 2.68 K/uL (1.20-3.40); Lymphocytes % (auto) 25.5 %; Mean Corpuscular Hemoglobin 28.2 pg (25.0-34.0); Mean Corpuscular Hgb Conc 33.2 g/dL (32.0-36.0); Mean Platelet Volume 9.7 fL (9.4-12.4); Monocytes # (auto) 0.87 K/uL (0.11-0.59); Monocytes % (auto) 8.3 %; Neutrophils # (auto) 6.69 K/uL (1.40-6.50); Neutrophils % (auto) 63.7 %; Platelet Count 357 K/uL (130-400); RDW Coefficient of Variation 13.3 % (11.5-14.5); RDW Standard Deviation 41.2 fL (36.4-46.3); Red Blood Count 5.25 M/uL (4.20-5.40)
[2023-09-24 07:33] LABS: BUN Creatinine Ratio 15.6 (10-20); Calcium 10.1 mg/dl (8.6-10.3); Creatinine Clr Calc Pharmacy 77.4 ml/min; Est GFR (African American) 81.6 ml/min; Est GFR (Non-African American) 70.4 ml/min; Phosphorus 4.3 mg/dl (2.5-4.9); Potassium 3.8 mmol/L (3.5-5.1)
--- NOTE | 2023-09-24 10:17 | Nephrology Progress Note ---
Date of Service September 24, 2023 Assessment & Plan Admission and Anticipated Discharge Date Admission Date: September 23, 2023 Subjective Assessment & Plan (1) Hypertensive crisis: from no BP meds to now very high BP. Does have a lot of stressors also lately. . But looks like she does need BP meds. Continue Valsartan 160 and HCTZ 12.5 daily for discharge. F/u nephrology within 2 weeks. Have her do renal Panel next week--some rise in BUn and creat is expected given new start of ARB and HCTZ. (2) Hydronephrosis, right: (3) Right ureteral stone: (4) Nephrolithiasis: had h/o this 20 years ago also and now. Surprising that she has absolutely no symptoms . I did review Urology note. the plan is for conservative management at this time. Hopefully she will pass the kidney stone in the right on her own. she has nephrocalcinosis and given history of kidney stone she does need workup for hypercalcemia. most importantly she needs a 24 hour urine study for uro risk--mainly to check for Hypercalcuria. but would like to do this after she passes current kidney stone. also check PTH and vitamin-D level. S--BP seems much better now. No new issues. No pain and no Gross hematuria physical examination awake alert oriented x3 normal speech young female who is able to give detailed account of her medical history. mucous membrane is moist neck is supple no JVD chest bilateral clear to auscultation CVS S1 and S2 regular no rub murmur or gallop heard abdomen is soft nontender. no costovertebral angle tenderness noted extremities shows no edema skin shows no rash Results & Data Vital Signs (Past 12 Hours) Vital Signs Temp Pulse Pulse Resp BP Pulse Ox O2 Del Method 09/24/23 07:46 36.5 C 72 17 132/85 100 Room Air 09/24/23 07:16 92 H 09/24/23 04:23 36.6 C 87 16 118/82 94 Room Air 09/23/23 23:32 36.6 C 123 H 18 135/90 99 Room Air 09/23/23 22:40 96 H
--- NOTE | 2023-09-24 12:04 | Discharge Summary ---
Discharge Summary Date of Service September 24, 2023 Notes For Next Care Provider Please ensure follow up with Urology for noted kidney stones. 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 Pt needs 24 hour urine study. 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 Follow clinically. A follow-up pelvic ultrasound in 2 months is recommended to ensure resolution/stability of noted bilateral adnexal lesions/cysts. Please continue to monitor BP after discharge. Medication Changes From Visit Valsartan 160mg daily HCTZ 12.5mg daily Admission HPI Per Admitting Provider History obtained from patient, family, and records. Medical history significant for hypertension, urolithiasis, reactive arthritis as per records. Patient developed sinus congestion symptoms associated with sore throat and bodyaches. Cough symptoms productive of clear sputum. No chest pain, no SOB. Patient taking OTC Sudafed. Outpatient COVID-19 test was negative. Admits to some personal stressors. Patient seen at PCPs office 4 days ago. SBP noted to be 220s, heart rate 110s. Slight expiratory wheeze on exam. Patient prescribed prednisone and doxycycline for possible complicated bronchitis. Patient instructed to stop Sudafed and restart home lisinopril if persistently elevated. Patient has been off blood pressure medicine for a few years now due to low BP. Patient felt sick after first doses of prednisone and doxycycline. Prednisone made her more anxious and doxycycline made her feel uncomfortable and tingly. SBP noted to be 200s despite taking hold lisinopril prescription. Denies headache, chest pain, SOB. Admits to palpitations. Highest SBP of 190s documented at the ER. Hydralazine administered at the ER. Medical History as above Surgical History : Urologic procedure, dental surgery, left knee surgery Family History : DM, heart disease Personal/Social history : Non-smoker, no EtOH intake, [employer] employee Admission Exam Per Admitting Provider GENERAL: Comfortable, slightly anxious, obese, no respiratory distress SKIN: Normal color, warm HEENT: Bespectacled, Hanna palpebral conjunctivae, no ptosis, dry buccal mucosa NECK : Supple, short neck, no tenderness CHEST : CTA, no tenderness HEART : Tachycardic, no obvious murmurs ABDOMEN: Some distention, nontender EXTREMITIES : Minimal LE swelling, no LE tenderness, no other conspicuous defo rmities noted NEUROLOGIC : Coherent, no facial asymmetry, no other gross focality Principal Dx & Hospital Course #1 = Principal Diagnosis (1) Hypertensive crisis: (2) Hypertension: (3) Tachycardia: Plan Pt is a 48yoF with PMHx significant for hypertension, urolithiasis, reactive arthritis presenting with elevated blood pressure readings and admitted with hypertensive urgency. Hypertensive Urgency Palpitations Tachycardia Multifactorial, noting palpitations at home and extremity numbness and tingling. Denied DILL Recent decongestant intake followed by adverse reaction to prednisone/doxycycline for recent viral URI Anxiety contributory-pt notes recent stressors EKG with sinus rhythm Trop wnl and downtrended from 3.3 to 3.2 to <2.3 Echo with EF 60-65%, trace mitral and tricuspid regurg, no LVH Chest xray unremarkable Chest CTA with no noted PE, incidental finding of right sided arch and aberrant L subclavian artery. Notes it can cause dysphagia, to correlate clinically. Renal Duplex US ordered, noted the following findings: -No sonographic evidence for renal artery stenosis -Moderate right hydronephrosis of uncertain etiology. Possible left hydronephrosis. Abdomen and pelvis CT could be obtained for further evaluation -Suspected left-sided nephrolithiasis. Possible medullary nephrocalcinosis. -Bilateral renal cortical thinning CT abd/pelvis ordered in follow up, noted the following: -Severe right hydronephrosis due to a 5 mm mid right ureteral calculus. 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 1.1 cm inferior left infundibular calculus which results in moderate dilatation of the left lower pole calyces. No left ureteral calculi. -9.2 cm water attenuation left adnexal lesion and a 3.3 cm hypodense right adnexal lesion. These are indeterminate but statistically reflect cysts. A follow-up pelvic ultrasound in 2 months is recommended to ensure resolution/stability. BP was 194/106 carole-admission Treated with IV labetalol and IV hydralazine in the ED and on admission Also received a dose of IV Lopressor for tachycardia Pt reports she was taking previously discontinued home lisinopril 5mg for the past few days Was placed on lisinopril 20mg qAM, po hydralazine 25mg qPM originally Seen by Nephrology on 09/23 for hypertensive urgency/medullary nephrocalcinosis noted: -transitioned to valsartan 160mg qAM with hctz 12.5mg qAM (lisinopril and hydralazine discontinued) -recommending 24hr urine testing after discharge Pt discharged with Valsartan 160mg qAM with hctz 12.5mg qAM Please ensure close follow up with Nephrology after discharge Please ensure close followup with pelvic US in 2 months after discharge Possible Medullary nephrocalcinosis Noted on renal US above CT abd/pelvis noting the same Nephrology consulted: -recommending 24hr urine testing after discharge Nephrolithiasis Hydronephrosis Pt notes Hx of kidney stones Renal US noting moderate right hydronephrosis of uncertain etiology. Possible left hydronephrosis. CT abd/pelvis confirming the same, 5mm stone noted. Pt asymptomatic Urology consulted: -recommending outpt followup for further evaluation -urine strainer Please ensure close followup with Urology after discharge Adnexal cysts Noted incidentally on CT abd/pelvis 2 month pelvic US recommended to ensure stability or resolution. Please ensure followup. Anxiety Multifactorial Pt notes recent stressors of father in law currently hospitalized at [facility] as well. Past work stressors Continue with prn Ativan Consider joint terminal attack controller treatment with an SSRI Prediabetes Pt with noted hyperglycemia Hgba1c of 6.2 Lifestyle changes, can consider low dose metformin based on risk factors PCP follow up after discharge. Discharge Exam General: Alert, oriented. No acute distress Skin: No noted rashes or bruises Psych: Appropriate mood and affect Neuro: No gross deficits HEENT: NC/AT Chest: Nontender to palpation. CV: RRR at the time of exam, Normal s1, s2. No murmurs appreciated Resp: Breath sounds clear bilaterally, no increased effort of breathing. Abdomen: Soft, nontender, nondistended. No guarding. No organomegaly appreciated. Extremities: No edema in lower extremities bilaterally. Updated Medication List Medication Instructions Recorded Confirmed Type albuterol sulfate 90 mcg/actuation 2 puff inhalation Q4 PRN Wheezing 09/22/23 09/22/23 History aerosol inhaler fluticasone propionate 50 2 spray intranasal QAM 09/22/23 09/22/23 History mcg/actuation nasal spray,suspension multivitamin with minerals 1 tab PO DAILY 09/22/23 09/22/23 History (Multiple Vitamin-Minerals tablet) hydrochlorothiazide 25 mg tablet 12.5 mg (1/2 x 25 mg) PO QAM #15 09/24/23 Rx tabs valsartan 80 mg tablet (Diovan) 160 mg (2 x 80 mg) PO QAM #60 tabs 09/24/23 Rx Hospital Stay Data Consultations 09/22/23 02:14 ED Decision to Admit Stat 09/23/23 08:06 Consult Nephrology Routine Consult Urology Routine Diagnostic Imagining Performed 09/22/23 01:14 CT for pulmonary embolism PE [CT angio chest PE protocol] Stat 09/22/23 08:20 US doppler renal [US duplex renal artery] Urgent 09/22/23 17:06 CT abd pelvis IV con only Urgent Chest X-Ray 09/22/23 00:27 XR chest 1V portable CLINICAL HISTORY: Chest pain, nonspecific COMPARISON STUDY: No previous studies for comparison. FINDINGS: Lung volumes are normal. Lungs are clear. There is no pneumothorax or pleural effusion. Cardiac size is normal. Right aortic arch is incidentally noted. There is no evidence for pulmonary edema. IMPRESSION: No acute cardiopulmonary findings. ACT 112: Negative or not required by law. Electronically signed by: Candido Kong M.D. 09/22/2023 9:02 AM Chest CTA 09/22/23 01:14 Exam(s): CTA CHEST IV Amt: 118 ml EXAM: CT Angiography Chest With Intravenous Contrast CLINICAL HISTORY: Reason for exam: PE. TECHNIQUE: Axial computed tomographic angiography images of the chest with intravenous contrast. CTDI is 39.29 mGy and DLP is 841.44 mGy-cm. Automated exposure control was utilized for the study. A dose lowering technique was utilized adhering to the principles of ALARA. MIP reconstructed images were created and reviewed. 118 mL IV contrast is given. COMPARISON: None. FINDINGS: Pulmonary arteries: No pulmonary embolism. Aorta: No dissection or aneurysm. 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 No consolidation. Pleural space: No significant effusion. No pneumothorax. Heart: Mild cardiomegaly. No significant pericardial effusion. No evidence of elevated right heart pressures. Bones/joints: No acute fracture. Soft tissues: Unremarkable. Lymph nodes: No enlarged lymph nodes. IMPRESSION: 1. No pulmonary embolism. 2. Normal variant anatomy with right-sided aortic arch and aberrant left subclavian artery, can result in dysphagia, correlate clinically. 3. Lungs are clear. Electronically signed by: Mireya Hurd M.D. 09/22/23 01:57 AM Renal Artery Duplex 09/22/23 08:20 US duplex renal artery CLINICAL HISTORY: hypertensive urgency COMPARISON STUDY: No previous studies for comparison. TECHNIQUE: Grayscale, color and duplex Doppler sonography of the abdominal aorta and renal arteries was performed. FINDINGS: Taking systolic velocity within the abdominal aorta was 64 cm/s. The bilateral renal arteries and veins were patent. The peak systolic velocity within the right renal artery was 134 cm/s. Segmental waveforms within the right kidney are unremarkable. Peak systolic velocity within the left renal artery was 104 cm/s. Echogenic foci within the left kidney measure up to 7 mm. These favor stones. Bilateral renal cortical thinning. There is moderate right hydronephrosis. There is also possible mild to moderate left hydronephrosis. There is bilateral renal cortical thinning. Possible medullary nephrocalcinosis. IMPRESSION: 1. No sonographic evidence for renal artery stenosis. 2. Moderate right hydronephrosis of uncertain etiology. Possible left hydronephrosis. Abdomen and pelvis CT could be obtained for further evaluation. 3. Suspected left-sided nephrolithiasis. Possible medullary nephrocalcinosis. 4. Bilateral renal cortical thinning. ACT 112: Negative or not required by law. Electronically signed by: Candido Kong M.D. 09/22/2023 10:04 AM Abdomen/Pelvis CT 09/22/23 17:06 CT OF THE ABDOMEN AND PELVIS WITH CONTRAST CLINICAL HISTORY: f/u renal US, hydronephrosis COMPARISON STUDY: Doppler renal ultrasound performed earlier today. TECHNIQUE: Following IV administration of 87 mL of Optiray, axial images of the abdomen and pelvis were obtained from the lung bases to the proximal femurs. Images were reviewed in the axial, sagittal, and coronal planes. IV contrast was administered without complication. Automated exposure control was utilized for the study. A dose lowering technique was utilized adhering to the principles of ALARA. CT DOSE: 1310.58 mGy.cm FINDINGS: Lung bases are unremarkable. No pneumatosis, free air or portal venous gas is present. There are no hepatic lesions. Spleen, adrenal glands and pancreas are unremarkable. There is no biliary or pancreatic ductal dilatation. Severe right hydronephrosis is due to a 5 mm mid right ureteral calculus. There are no left ureteral calculi. Numerous left renal calculi measure up to 8 mm. Numerous left renal calculi are present including a 1.1 cm inferior left infundibular calculus which results in moderate dilatation of the left lower pole calyces. Numerous small right renal calculi are present. The right nephrogram is not delayed. The caliber and wall thickness of small and large bowel are normal. The appendix is normal. A water attenuation 9.2 cm left adnexal lesion is present. There is a low-attenuation 3.3 center right adnexal lesion. There is no lymphadenopathy. No ascites. IMPRESSION: 1. Severe right hydronephrosis due to a 5 mm mid right ureteral calculus. 2. 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 1.1 cm inferior left infundibular calculus which results in moderate dilatation of the left lower pole calyces. No left ureteral calculi. 3. 9.2 cm water attenuation left adnexal lesion and a 3.3 cm hypodense right adnexal lesion. These are indeterminate but statistically reflect cysts. A follow-up pelvic ultrasound in 2 months is recommended to ensure res olution/stability. ACT 112: Negative or not required by law. Electronically signed by: Candido Kong M.D. 09/22/2023 6:47 PM Pending Results Patient Have Any Pending Studies at Discharge: No Discharge Instructions Given to Patient (Per Discharging Provider) Soni, You were admitted with very high blood pressures. The blood pressure eventually became normal after starting you on the medications Valsartan and hydrochlorothiazide. Please continue to take those at home. It was also noted that you had kidney stones. Please keep follow up with Urology after discharge about this. They want you discharged home with a urine strainer. Please also keep follow up with Nephrology in 2 weeks and your primary care provider after discharge. Nephrology wants you to repeat bloodwork in a week that your pcp can order for you. Please do not hesitate to come back to the emergency room if your symptoms worsen or return. It was a pleasure taking care of you while you were here. Total Time Total Time Spent Total Time Spent (In Minutes): >30 minutes
== END 2023-09-24 13:23 | disposition home or self-care (01) | DRG 305 ==
LOC: ED 00:08 → 2S 00:08
DX: Z88.1 Allergy status to other antibiotic agents; E83.59 Other disorders of calcium metabolism; I16.0 Hypertensive urgency; R00.0 Tachycardia, unspecified; N29 Other disorders of kidney and ureter in diseases classified elsewhere; F41.9 Anxiety disorder, unspecified; N13.2 Hydronephrosis with renal and ureteral calculous obstruction; J40 Bronchitis, not specified as acute or chronic; Z87.442 Personal history of urinary calculi; R73.03 Prediabetes